=== PATIENT | male | born 1930 | race Caucasian/White ===

== ENCOUNTER 2017-06-15 09:35 | Emergency (ER) | payer BC ==
[2017-06-15] MEDS ORDERED: IPRATROPIUM/ALBUTEROL 3 ML DEYVIAL IH ONE (10:25)
--- NOTE | 2017-06-15 10:28 | EDPHY ---
H & P Stated Complaint: COUGH X 10 DAYS - Personal History Current Tetanus/Diphtheria Vaccine: Yes Tetanus Vaccine Date: < 10 YEARS - Medical/Surgical History Hx Asthma: No Hx Chronic Respiratory Disease: No Hx Diabetes: No Hx Cardiac Disease: Yes Hx Renal Disease: No Hx Cirrhosis: No Hx Alcoholism: No Hx HIV/AIDS: No Hx Splenectomy or Spleen Trauma: No Other PMH: [place] x 4, pacemaker, abd surgery 2007, abd hernia, hip surgery, stents in 2 major arteries x 14, prostate ca with surgery, htn, afib, ppm, dvt, - Social History Smoking Status: Never smoked Time Seen by Provider: 06/15/17 10:06 HPI/ROS: CHIEF COMPLAINT: Nonproductive cough times 10 days HISTORY OF PRESENT ILLNESS: 87-year-old male arrives by ambulance, no history of chronic lung pathology, no history of reactive airway disease, complaining of 10 days of nonproductive cough which he feels is exacerbated by recent while fire activity. No chest pain. No dyspnea. No dizziness. No back pain. No syncope or near syncope. No sore throat. No fever or chills. No flu-like symptoms. PRIMARY CARE PROVIDER:Dr. Kobi Blanca REVIEW OF SYSTEMS: A ten point review of systems was performed and is negative with the exception of the items mentioned in the HPI PAST MEDICAL & SURGICAL HISTORY: No pertinent medical or surgical history SOCIAL HISTORY:nonsmoker PHYSICAL EXAM (Prior to examination, patient consented to physical exam, hands were washed and my usual and customary physical exam procedures followed) 1) GENERAL: Well-developed, well-nourished, alert and oriented. Appears to be in no acute distress. Smiling. Speaking full sentences with no signs of respiratory distress 2) HEAD: Normocephalic, atraumatic 3) HEENT: Pupils equal, round, reactive to light bilaterally. Sclera anicteric. Nasopharynx, oropharynx, clear, no lesions. No tonsillar enlargement tonsillar exudate 4) NECK: Full range of motion, no meningeal signs. 5) LUNGS: mild bilateral end-expiratory wheeze. No accessory muscle use., no rhonchi, no retractions. 6) HEART: Regular rate and rhythm, no murmur, no heave, no gallop. 7) ABDOMEN: No guarding, no rebound, no focal tenderness, negative McBurney's, negative Jamison's, negative Rovsing's, negative peritoneal sign, 8) MUSCULOSKELETAL: Moving all extremities, no focal areas of tenderness, no obvious trauma. No peripheral edema or discoloratiom. negative Homans no palpable cord. 9) BACK: No CVA tenderness, no midline vertebral tenderness, no fluctuance, no step-off, no obvious trauma, no visual or palpable abnormality. 10) SKIN: No rash, no petechiae. 11) Psychiatric: Patient is oriented X 3, there is no agitation. DIFFERENTIAL DIAGNOSIS: in no particular include but limited to reactive airway disease, bronchitis, pneumonia, pulmonary edema, pulmonary embolus (Baljit Jacobson) Constitutional: Initial Vital Signs Temperature (C) 36.9 C 06/15/17 09:41 Heart Rate 78 06/15/17 09:41 Respiratory Rate 16 06/15/17 09:41 Blood Pressure 168/103 H 06/15/17 09:41 O2 Sat (%) 94 06/15/17 09:41 O2 Delivery Mode Room Air Allergies/Adverse Reactions: alprazolam [From Xanax] Allergy (Verified 12/05/15 18:57) nausea oxycodone Allergy (Verified 12/05/15 17:24) Home Medications: Medication Instructions Recorded Lidocaine 5% [Lidoderm 5% Patch 1 ea TD DAILY #12 patch 11/24/15 (*)] Acetaminophen [Tylenol ES 500 mg 1,000 mg PO Q8 PRN 11/27/15 (*)] Aspirin EC [Aspirin EC 81 mg (*)] 81 mg PO DAILY 11/27/15 Atorvastatin Calcium [Lipitor 40 40 mg PO DAILY@18 11/27/15 mg (*)] Calcitonin [Fortical (*)] 200 units NASAL DAILY 11/27/15 Carvedilol [Coreg (*)] 12.5 mg PO BIDMEAL 11/27/15 Cholecalciferol Vit D3 [Vitamin D3 1,000 units PO DAILY 11/27/15 (*)] Ferrous Gluconate 324 mg PO DAILY 11/27/15 Furosemide [Lasix 40 MG (*)] 40 mg PO DAILY 11/27/15 Herbals/Supplements -Info Only 1 ea PO DAILY 11/27/15 Levothyroxine [Synthroid 100 mcg 100 mcg PO DAILY06 11/27/15 (*)] Multivitamins [Multivitamin (*)] 1 each PO DAILY@12 11/27/15 Pantoprazole Sodium [Protonix 40mg 40 mg PO DAILY@06 11/27/15 (*)] Tears/Hypromellose [Natural 1 - 2 drops EACHEYE BID 11/27/15 Balance] Valsartan [Diovan (*)] 160 mg PO HS 11/27/15 Warfarin Sodium [Coumadin 2MG (*)] 2 mg PO SUTUWETHSA@16 11/27/15 Warfarin Sodium [Coumadin 5MG (*)] 5 mg PO MOFR@16 11/27/15 traMADol [Ultram 50 mg (*)] 50 mg PO Q6 PRN #30 tab 11/30/15 Enoxaparin [Lovenox] 120 mg SQ DAILY #7 ml 12/09/15 Methocarbamol [Robaxin 750 mg (*)] 750 mg PO TID PRN #30 tab 12/09/15 Ondansetron Odt [Zofran Odt 4 mg 4 mg PO Q4 PRN #20 tab 12/09/15 (*)] morphINE IR [morphINE IR 15 mg (*)] 15 mg PO Q6 PRN #30 tab 12/09/15 AZITHROMYCIN [Z-PACK] 500 mg PO DAILY #1 packet 06/15/17 Albuterol [Proventil Inhaler HFA 1 - 2 puffs IH Q4PRN PRN #1 mdi 06/15/17 (*)] predniSONE [Prednisone] 20 mg PO DAILY #9 tablet 06/15/17 Medical Decision Making - Diagnostics Imaging Results: Imaging Impressions Chest X-Ray 06/15/17 10:15 Impression: 1. Cardiomegaly and mild pulmonary venous hypertension. 2. Pacemaker without pneumothorax. 3. Atherosclerotic thoracic aorta. 4. No definite pneumonia. Images reviewed by myself (Baljit Jacobson) ED Course/Re-evaluation: 11:26 a.m.: Case discussed with secondary supine position Dr. Taye Lanier in the ER. Patient re-evaluated at this time. She did DuoNeb treatment. Notes improvement in his symptoms. I Kailyn auscultated his lungs and his lungs are clear bilaterally with resolution of his wheezing. I think that pneumonia, pulmonary embolus, [place], less than likely this patient absence of chest pain, dyspnea. Due to the ongoing nature of his symptoms have recommended starting the patient on antibiotic. He is on concurrent warfarin. I stressed the importance of close recheck of his INR on Saturday. Today is Saturday. I think the patient can be discharged have discussed this with him he feels comfortable with this plan. Recommend follow up with primary care provider Dr. Kobi Blanca on Saturday. I am starting the patient on albuterol, short dose of steroids and azithromycin. He feels comfortable being discharged. Usual and customary URI precautions instructions provided (Baljit Jacobson) I did not see this patient while he was in the emergency department. However his care was discussed with the PA while the patient was in the department. I agree with treatment plan and management (Taye Lanier) - Data Points Medications Given: Discontinued Medications Albuterol/Ipratropium (Duoneb) 3 ml IH EDNOW ONE Stop: 06/15/17 10:26 Last Admin: 06/15/17 10:27 Dose: 3 ml Prednisone (Prednisone) 60 mg PO EDNOW ONE Stop: 06/15/17 11:37 Last Admin: 06/15/17 11:40 Dose: 60 mg Departure - Departure Disposition: Home, Routine, Self-Care Clinical Impression: Acute bronchitis Qualifiers: Bronchitis organism: unspecified organism Qualified Code(s): J20.9 - Acute bronchitis, unspecified Condition: Good Instructions: Acute Bronchitis (ED) Additional Instructions: Return to the emergency department immediately for change in breathing habits, change in voice, change in swallowing habits, change in mental status, or any other symptoms that concern you. You to have your INR rechecked on Saturday Referrals: Uri Blanca MD [Primary Care Provider] - 06/17/17 Prescriptions: Albuterol [Proventil Inhaler HFA (*)] 1 - 2 puffs IH Q4PRN PRN #1 mdi PRN Reason: Cough, Moderate AZITHROMYCIN [Z-PACK] 500 mg PO DAILY #1 packet predniSONE [Prednisone] 20 mg PO DAILY #9 tablet
[2017-06-15 11:23] VITALS: RESP 18
[2017-06-15] MEDS ORDERED: predniSONE 20 MG TAB PO ONE (11:36)
[2017-06-15 12:37] VITALS: BP 167/106; PULSE 74; TEMP 98.1; O2SAT 96
--- NOTE | 2017-06-16 17:06 | ASDISCHSUM ---
Discharge Information Plan Status:Assisted Living Medically Cleared to Leave: Discharge Date: D/C Disposition: ADT D/C Disposition:Home, Routine, Self-Care Projected Discharge Date: Transportation at D/C: Discharge Delay Reason: Follow-Up Date: Discharge Slot: Final Diagnosis: Placement Information Patient Contact Information Contact Name:GANESH Relationship:Mel Address: Work Phone: City: [facility] Phone: State/[place] Code: Email: Financial Information Financial Class:HMO and PPO Plans Primary Plan Desc:[employer]AN Primary Plan Number:[id number] Secondary Plan Desc: Secondary Plan Number: Assessment Information Intervention Information Intervention Type:Transportation Date of Service:06/15/2017 11:56 AM Patient Type:Emergency Room Staff Member:Marcel Rodriguez Hours:0.25 Discipline:[place] Severity:1 (0-1 Hours) Comment:Mark from [facility] to marbella gamboa pt.
== END 2017-06-15 12:37 | disposition home or self-care (01) ==
LOC: EDUNIT#
DX: J20.9 Acute bronchitis, unspecified (principal); I10 Essential (primary) hypertension; Z79.01 Long term (current) use of anticoagulants; Z79.82 Long term (current) use of aspirin; Z85.46 Personal history of malignant neoplasm of prostate; Z95.0 Presence of cardiac pacemaker; Z95.5 Presence of coronary angioplasty implant and graft

== ENCOUNTER 2017-12-24 14:03 | Emergency (ER) | payer BC ==
--- NOTE | 2017-12-24 14:06 | EDPHY ---
H & P Time Seen by Provider: 12/24/17 14:05 HPI/ROS: CHIEF COMPLAINT: Cough, weakness HISTORY OF PRESENT ILLNESS: The patient presents to the ED for evaluation of cough and weakness for the past 3 days. The patient denies fever, vomiting or diarrhea. The patient is chronically anticoagulated for atrial fibrillation. The patient has had some nonspecific anterior chest pain which is nonexertional and nonpleuritic. The patient denies any documented fever. The patient does have a history of intermittent bronchitis. The patient denies any complaints of urinary frequency or dysuria. The patient does report mild global weakness. He denies additional acute complaints. REVIEW OF SYSTEMS: A comprehensive 10 point review of systems is otherwise negative aside from elements mentioned in the history of present illness. Source: Patient Exam Limitations: No limitations - Personal History Tetanus Vaccine Date: < 10 YEARS - Medical/Surgical History Hx Asthma: No Hx Chronic Respiratory Disease: No Hx Diabetes: No Hx Cardiac Disease: Yes Hx Renal Disease: No Hx Cirrhosis: No Hx Alcoholism: No Hx HIV/AIDS: No Hx Splenectomy or Spleen Trauma: No Other PMH: [place] x 4, pacemaker, abd surgery 2007, abd hernia, hip surgery, stents in 2 major arteries x 14, prostate ca with surgery, htn, afib, ppm, dvt, - Social History Smoking Status: Never smoked - Physical Exam Exam: General Appearance: Alert, no distress Eyes: Pupils equal and round no pallor or injection ENT, Mouth: Mucous membranes moist Respiratory: There are no retractions, lungs are clear to auscultation Cardiovascular: Regular rate and rhythm Gastrointestinal: Abdomen is soft and nontender, no masses, bowel sounds normal Neurological: A&O, normal motor function, normal sensory exam, normal cranial nerves Skin: Warm and dry, no rashes Musculoskeletal: Neck is supple nontender Extremities: symmetrical, full range of motion Constitutional: Initial Vital Signs Temperature (C) 36.6 C 12/24/17 14:08 Heart Rate 69 12/24/17 14:08 Respiratory Rate 18 12/24/17 14:08 Blood Pressure 126/91 H 12/24/17 14:08 O2 Sat (%) 94 12/24/17 14:08 O2 Delivery Mode Room Air Allergies/Adverse Reactions: alprazolam [From Xanax] Allergy (Verified 12/05/15 18:57) nausea oxycodone Allergy (Verified 12/05/15 17:24) Home Medications: Medication Instructions Recorded Lidocaine 5% [Lidoderm 5% Patch] 1 ea TD DAILY #12 patch 11/24/15 Acetaminophen [Tylenol ES 500 mg 1,000 mg PO Q8 PRN 11/27/15 (*)] Aspirin EC [Aspirin EC 81 mg (*)] 81 mg PO DAILY 11/27/15 Atorvastatin Calcium [Lipitor 40 40 mg PO DAILY@18 11/27/15 mg (*)] Calcitonin [Fortical (*)] 200 units NASAL DAILY 11/27/15 Carvedilol [Coreg (*)] 12.5 mg PO BIDMEAL 11/27/15 Cholecalciferol Vit D3 [Vitamin D3 1,000 units PO DAILY 11/27/15 (*)] Ferrous Gluconate 324 mg PO DAILY 11/27/15 Furosemide [Lasix 40 MG (*)] 40 mg PO DAILY 11/27/15 Herbals/Supplements -Info Only 1 ea PO DAILY 11/27/15 Levothyroxine [Synthroid 100 mcg 100 mcg PO DAILY06 11/27/15 (*)] Multivitamins [Multivitamin (*)] 1 each PO DAILY@12 11/27/15 Pantoprazole Sodium [Protonix 40mg 40 mg PO DAILY@06 11/27/15 (*)] Tears/Hypromellose [Natural 1 - 2 drops EACHEYE BID 11/27/15 Balance] Valsartan [Diovan (*)] 160 mg PO HS 11/27/15 Warfarin Sodium [Coumadin 2MG (*)] 2 mg PO SUTUWETHSA@16 11/27/15 Warfarin Sodium [Coumadin 5MG (*)] 5 mg PO MOFR@16 11/27/15 traMADol [Ultram 50 mg (*)] 50 mg PO Q6 PRN #30 tab 11/30/15 Enoxaparin [Lovenox] 120 mg SQ DAILY #7 ml 12/09/15 Methocarbamol [Robaxin 750 mg (*)] 750 mg PO TID PRN #30 tab 12/09/15 Ondansetron Odt [Zofran Odt 4 mg 4 mg PO Q4 PRN #20 tab 12/09/15 (*)] morphINE IR [morphINE IR 15 mg (*)] 15 mg PO Q6 PRN #30 tab 12/09/15 AZITHROMYCIN [Z-PACK] 500 mg PO DAILY #1 packet 06/15/17 Albuterol [Proventil Inhaler HFA 1 - 2 puffs IH Q4PRN PRN #1 mdi 06/15/17 (*)] predniSONE [Prednisone] 20 mg PO DAILY #9 tablet 06/15/17 Albuterol [Ventolin Hfa Inhaler] 2 puffs IH QID PRN #1 mdi 12/24/17 Oseltamivir Phosphate [Tamiflu] 75 mg PO BID #10 cap 12/24/17 Medical Decision Making - Diagnostics Imaging Results: Imaging Impressions Chest X-Ray 12/24/17 14:15 Impression: 1. Mild peribronchial cuffing in the perihilar region bilaterally similar to the prior study. Findings are nonspecific but can be seen with bronchitis, viral process, or reactive airways disease. 2. Stable mild to moderate cardiomegaly. ED Course/Re-evaluation: The patient presents the ED for evaluation of cough and weakness. The patient' s chest x-ray demonstrates no evidence of an obvious infiltrate. The patient was noted to be therapeutic on his Coumadin. His laboratory studies are reassuring. The patient was taken for a chest x-ray which demonstrates no evidence of a focal infiltrate. The patient was noted to be influenza B positive. The patient is not hypoxic, tachycardic or hypotensive. I re-evaluated the patient at 3:40 p.m. and he will be prescribed Tamiflu and albuterol. He is comfortable being discharged home and returning to the ED for any worsening symptoms or other concerns. The patient will follow up with his primary care provider for any ongoing symptoms or other concerns. He is given customary aftercare instructions and return precautions. Differential Diagnosis: Differential diagnosis considered includes asthma, influenza, bronchitis, pneumonia, dehydration, metabolic abnormality - Data Points Laboratory Results: Laboratory Results 12/24/17 14:20 12/24/17 14:20 12/24/17 12/24/17 12/24/17 14:20 14: 14:20 WBC 5.47 10^3/uL 10^3/uL (3.80-9.50) RBC 3.64 10^6/uL L 10^6/uL (4.40-6.38) Hgb 12.2 g/dL L g/dL (13.7-17.5) Hct 35.7 % L % (40.0-51.0) MCV 98.1 fL fL (81.5-99.8) MCH 33.5 pg pg (27.9-34.1) MCHC 34.2 g/dL g/dL (32.4-36.7) RDW 14.3 % % (11.5-15.2) Plt Count 113 10^3/uL L 10^3/uL (150-400) MPV 10.4 fL fL (8.7-11.7) Neut % (Auto) 62.3 % % (39.3-74.2) Lymph % (Auto) 17.7 % % (15.0-45.0) [place] % (Auto) 13.9 % H % (4.5-13.0) Eos % (Auto) 4.8 % % (0.6-7.6) Baso % (Auto) 0.9 % % (0.3-1.7) Nucleat RBC Rel Count 0.0 % % (0.0-0.2) Absolute Neuts (auto) 3.41 10^3/uL 10^3/uL (1.70-6.50) Absolute Lymphs (auto) 0.97 10^3/uL L 10^3/uL (1.00-3.00) Absolute Monos (auto) 0.76 10^3/uL 10^3/uL (0.30-0.80) Absolute Eos (auto) 0.26 10^3/uL 10^3/uL (0.03-0.40) Absolute Basos (auto) 0.05 10^3/uL 10^3/uL (0.02-0.10) Absolute Nucleated RBC 0.00 10^3/uL 10^3/uL (0-0.01) Immature Gran % 0.4 % % (0.0-1.1) Immature Gran # 0.02 10^3/uL 10^3/uL (0.00-0.10) PT 20.2 SEC H SEC (12.0-15.0) INR 1.71 H (0.83-1.16) Sodium Potassium Chloride Carbon Dioxide Anion Gap BUN Creatinine Estimated GFR Glucose Calcium Nasal Influenza A PCR NEGATIVE FOR FLU A (NEGATIVE) Nasal Influenza B PCR FLU B DETECTED H (NEGATIVE) 12/24/17 14:20 WBC RBC Hgb Hct MCV MCH MCHC RDW Plt Count MPV Neut % (Auto) Lymph % (Auto) [place] % (Auto) Eos % (Auto) Baso % (Auto) Nucleat RBC Rel Count Absolute Neuts (auto) Absolute Lymphs (auto) Absolute Monos (auto) Absolute Eos (auto) Absolute Basos (auto) Absolute Nucleated RBC Immature Gran % Immature Gran # PT INR Sodium 143 mEq/L mEq/L (135-145) Potassium 4.0 mEq/L mEq/L (3.5-5.2) Chloride 107 mEq/L mEq/L (97-110) Carbon Dioxide 24 mEq/l mEq/l (22-31) Anion Gap 12 mEq/L mEq/L (8-16) BUN 29 mg/dL H mg/dL (7-23) Creatinine 0.7 mg/dL mg/dL (0.7-1.3) Estimated GFR > 60 Glucose 95 mg/dL mg/dL (70-100) Calcium 8.0 mg/dL L mg/dL (8.5-10.4) Nasal Influenza A PCR Nasal Influenza B PCR Departure - Departure Disposition: Home, Routine, Self-Care Clinical Impression: Influenza Condition: Good Instructions: Influenza (ED) Additional Instructions: 1. Please take Tamiflu as directed for influenza infection. 2. Please use albuterol inhaler up to every 2-4 hours as needed for cough and shortness of breath. 3. Please return to the ED for any worsening symptoms, vomiting or other concerns. 4. Please follow-up with your primary care provider as needed. Referrals: Uri Blanca MD [Medical Doctor] - As per Instructions
[2017-12-24 14:10] VITALS: RESP 18
--- NOTE | 2017-12-24 14:33 | CPEKG ---
Heart Rate: 75 RR Interval: 800 QRSD Interval: 142 QT Interval: 452 QTC Interval: 505 QRS [place]: -33 T Wave [place]: -34 EKG Severity - ABNORMAL ECG - EKG Impression: AFIB/FLUT AND V-PACED COMPLEXES EKG Impression: IVCD, CONSIDER ATYPICAL RBBB Electronically Signed By: Kendell Dill 24-Dec-2017 16:16:54
[2017-12-24 14:35] LABS: PLATELET COUNT 113 10^3/uL (150-400)
[2017-12-24 14:46] LABS: INR 1.71 (0.83-1.16); PROTIME(PATIENT) 20.2 SEC (12.0-15.0)
[2017-12-24 15:55] VITALS: BP 121/79; PULSE 65; TEMP 98.1; O2SAT 95
== END 2017-12-24 15:55 | disposition home or self-care (01) ==
LOC: EDUNIT#
DX: J10.1 Influenza due to other identified influenza virus with other respiratory manifestations (principal); I25.2 Old myocardial infarction; Z85.46 Personal history of malignant neoplasm of prostate; Z79.82 Long term (current) use of aspirin; Z79.01 Long term (current) use of anticoagulants; Z95.0 Presence of cardiac pacemaker

== ENCOUNTER 2018-02-13 06:23 | Observation (INO) | payer BC ==
--- NOTE | 2018-02-13 06:36 | CPEKG ---
Heart Rate: 79 RR Interval: 759 QRSD Interval: 134 QT Interval: 460 QTC Interval: 528 QRS [place]: -32 T Wave [place]: -39 EKG Severity - ABNORMAL ECG - EKG Impression: ATRIAL FIBRILLATION EKG Impression: IVCD, CONSIDER ATYPICAL RBBB EKG Impression: CONSIDER ANTERIOR INFARCT Electronically Signed By: Frank Tipton 13-Feb-2018 07:23:44
--- NOTE | 2018-02-13 06:39 | EDPHY ---
H & P Time Seen by Provider: 02/13/18 06:30 HPI/ROS: Chief Complaint: Sweating, nausea HPI: 87-year-old male with a history of coronary artery disease status post stenting times 12. Patient woke this morning about 2 o'clock this morning feeling very sweaty and nauseated. He says that these are the exact same symptoms he has had with his prior silent myocardial infarctions. He has had multiple MIs but has never had any chest pain associated with him. He did have some mild shortness of breath. Symptoms lasted up until about an hour ago. He is currently symptom free. He did shoe 4 baby aspirin. No recent illness. No fevers or chills. He does have some lumbar compression fractures which caused him some discomfort but these are not acute. He did not have any vomiting. He has a history of atrial fibrillation and has had ischemic bowel. He is currently on Coumadin, INR last checked about 3 weeks ago. ROS: 10 point Review of Systems is negative except as noted in the HPI. Social History: No smoking, no alcohol, no recreational drug use Family History: non-contributory Physical Exam: Gen: Awake, Alert, No Distress HEENT: Nose: no rhinorrhea Eyes: PERRLA, EOMI Mouth: Moist mucosa Neck: Supple, no JVD Chest: nontender, lungs clear to auscultation Heart: S1, S2 normal, no murmur Abd: Soft, a large ventral her hernia, nontender, no guarding Back: no CVA tenderness, no midline tenderness Ext: no edema, non-tender Skin: no rash Neuro: CN II-XII intact, Sensation grossly intact, Strength 5/5 in bilateral upper and lower extremities - Personal History Tetanus Vaccine Date: < 10 YEARS - Medical/Surgical History Hx Asthma: No Hx Chronic Respiratory Disease: No Hx Diabetes: No Hx Cardiac Disease: Yes Hx Renal Disease: No Hx Cirrhosis: No Hx Alcoholism: No Hx HIV/AIDS: No Hx Splenectomy or Spleen Trauma: No Other PMH: [place] x 4, pacemaker, abd surgery 2007, abd hernia, hip surgery, stents in 2 major arteries x 14, prostate ca with surgery, htn, afib, ppm, dvt, - Social History Smoking Status: Never smoked Constitutional: Initial Vital Signs Temperature (C) 36.5 C 02/13/18 06:30 Heart Rate 69 05/10/18 06:30 Respiratory Rate 17 02/13/18 06:30 Blood Pressure 143/88 H 02/13/18 06:30 O2 Sat (%) 97 02/13/18 06:30 O2 Delivery Mode Room Air Allergies/Adverse Reactions: alprazolam [From Xanax] Allergy (Verified 02/13/18 06:39) nausea oxycodone Allergy (Verified 02/13/18 06:39) Home Medications: Medication Instructions Recorded Aspirin EC [Aspirin EC 81 mg (*)] 81 mg PO DAILY 11/27/15 Atorvastatin Calcium [Lipitor 40 40 mg PO DAILY@18 11/27/15 mg (*)] Carvedilol [Coreg (*)] 12.5 mg PO BIDMEAL 11/27/15 Cholecalciferol Vit D3 [Vitamin D3 1,000 units PO DAILY 11/27/15 (*)] Ferrous Gluconate 324 mg PO DAILY 11/27/15 Furosemide [Lasix 40 MG (*)] 40 mg PO DAILY 11/27/15 Herbals/Supplements -Info Only 1 ea PO DAILY 11/27/15 Levothyroxine [Synthroid 100 mcg 100 mcg PO DAILY06 11/27/15 (*)] Multivitamins [Multivitamin (*)] 1 each PO DAILY@12 11/27/15 Pantoprazole Sodium [Protonix 40mg 40 mg PO DAILY@11/27/15 (*)] Valsartan [Diovan (*)] 160 mg PO HS 11/27/15 Warfarin Sodium [Coumadin 2MG (*)] 2 mg PO SUTUWETHSA@16 11/27/15 Warfarin Sodium [Coumadin 5MG (*)] 5 mg PO MOFR@16 11/27/15 Medical Decision Making - Diagnostics EKG Interpretation: ECG time 6:33 a.m., atrial fibrillation with a rate of 79, evidence of an old anterior infarct which is unchanged. There is interventricular conduction delay and atypical right bundle branch block. No significant changes from prior ECG of 12/24/2017. Imaging Results: There are no acute changes on his chest x-ray per my interpretation. Imaging: I viewed and interpreted images myself ED Course/Re-evaluation: 87-year-old male with a history coronary artery disease presenting with symptoms typical for his prior silent MIs. No acute changes on his ECG. His troponin is not significantly elevated. He did take aspirin at home. He is symptom-free at this time. Given his history will admit to the hospitalist for further monitoring and cardiac rule out. - Data Points Laboratory Results: Laboratory Results 02/13/18 06:25 02/13/18 06:25 02/13/18 02/13/18 02/13/18 06:25 06:25 06:25 WBC 5.53 10^3/uL 10^3/uL (3.80-9.50) RBC 3.68 10^6/uL L 10^6/uL (4.40-6.38) Hgb 12.4 g/dL L g/dL (13.7-17.5) Hct 35.5 % L % (40.0-51.0) MCV 96.5 fL fL (81.5-99.8) MCH 33.7 pg pg (27.9-34.1) MCHC 34.9 g/dL g/dL (32.4-36.7) RDW 14.4 % % (11.5-15.2) Plt Count 139 10^3/uL L 10^3/uL (150-400) MPV 10.5 fL fL (8.7-11.7) Neut % (Auto) 60.7 % % (39.3-74.2) Lymph % (Auto) 22.2 % % (15.0-45.0) [place] % (Auto) 8.3 % % (4.5-13.0) Eos % (Auto) 7.1 % % (0.6-7.6) Baso % (Auto) 1.3 % % (0.3-1.7) Nucleat RBC Rel Count 0.0 % % (0.0-0.2) Absolute Neuts (auto) 3.36 10^3/uL 10^3/uL (1.70-6.50) Absolute Lymphs (auto) 1.23 10^3/uL 10^3/uL (1.00-3.00) Absolute Monos (auto) 0.46 10^3/uL 10^3/uL (0.30-0.80) Absolute Eos (auto) 0.39 10^3/uL 10^3/uL (0.03-0.40) Absolute Basos (auto) 0.07 10^3/uL 10^3/uL (0.02-0.10) Absolute Nucleated RBC 0.00 10^3/uL 10^3/uL (0-0.01) Immature Gran % 0.4 % % (0.0-1.1) Immature Gran # 0.02 10^3/uL 10^3/uL (0.00-0.10) PT 25.8 SEC H SEC (12.0-15.0) INR 2.36 H (0.83-1.16) APTT 36.1 SEC SEC (23.0-38.0) Sodium 142 mEq/L mEq/L (135-145) Potassium 4.2 mEq/L mEq/L (3.5-5.2) Chloride 105 mEq/L mEq/L (97-110) Carbon Dioxide 26 mEq/l mEq/l (22-31) Anion Gap 11 mEq/L mEq/L (8-16) BUN 24 mg/dL H mg/dL (7-23) Creatinine 0.8 mg/dL mg/dL (0.7-1.3) Estimated GFR > 60 Glucose 107 mg/dL H mg/dL (70-100) Calcium 8.8 mg/dL mg/dL (8.5-10.4) Troponin I 0.015 ng/mL ng/mL (0.000-0.034) Departure - Departure Disposition: [facility] In[facility] Acute Clinical Impression: Diaphoresis, Nausea Condition: Fair Referrals: Patient,NotPresent [Unknown] - As per Instructions
[2018-02-13 06:55] LABS: INR 2.36 (0.83-1.16); PROTIME(PATIENT) 25.8 SEC (12.0-15.0)
[2018-02-13 07:02] LABS: PLATELET COUNT 139 10^3/uL (150-400)
[2018-02-13] MEDS ORDERED: ONDANSETRON DISINTEGRATING 4 MG TAB PO PRN (07:32)
[2018-02-13] MEDS ORDERED: ONDANSETRON 4 MG/2 ML VIAL IVP PRN (07:32)
[2018-02-13] MEDS ORDERED: ACETAMINOPHEN 325 MG TAB PO PRN (07:32)
[2018-02-13] MEDS ORDERED: NS 1,000 ML IV SCH (08:45)
[2018-02-13] MEDS: PANTOPRAZOLE SODIUM 40 MG TAB PO SCH (09:01)
--- NOTE | 2018-02-13 09:44 | PDGENHP ---
History and Physical - Chief Complaint Nause and diaphoresis - History of Present Illness This is a 87 yo male with hx of CAD and multiple WA's who previously has had WA' s with silent (no cp) sxs to include diaphoresis and nausea. Today he had these symptoms and was worried about an WA and presented to the E.D. IN the E.D. a troponin is unremarkable and EKG does not show new ischemia. He denies CP. He is no longer diaphoretic and has no nausea. He is being admitted for cp r/o given his presentation and history. Denies fevers, cp, sob, vomiting, diarrhea, malaise, palpitations, leg swelling. PMHX/SHX: WA x 4, pacemaker, abd surgery 2007, abd hernia, hip surgery, stents in 2 major arteries x 14, prostate ca with surgery, htn, afib, ppm, dvt, Social History: No smoking, no alcohol, no recreational drug use Family History: non-contributory History Information - Allergies/Home Medication List Allergies/Adverse Reactions: alprazolam [From Xanax] Allergy (Verified 02/13/18 06:39) nausea oxycodone Allergy (Verified 02/13/18 06:39) Home Medications: Aspirin EC [Aspirin EC 81 mg (*)] 81 mg PO DAILY 11/27/15 [Last Taken 02/12/18] Atorvastatin Calcium [Lipitor 40 mg (*)] 40 mg PO DAILY@18 11/27/15 [Last Taken 02/12/18] Carvedilol [Coreg (*)] 12.5 mg PO BIDMEAL 11/27/15 [Last Taken 02/12/18 18:00] Cholecalciferol Vit D3 [Vitamin D3 (*)] 1,000 units PO DAILY 11/27/15 [Last Taken 02/12/18] Ferrous Gluconate 324 mg PO DAILY 11/27/15 [Last Taken 02/12/18] Furosemide [Lasix 40 MG (*)] 40 mg PO DAILY@1330 11/27/15 [Last Taken 11:30] Herbals/Supplements -Info Only 1 ea PO DAILY 11/27/15 [Last Taken 12/04/15] Levothyroxine [Synthroid 100 mcg (*)] 100 mcg PO DAILY@07 11/27/15 [Last Taken 02/12/18] Multivitamins [Multivitamin (*)] 1 each PO DAILY@1330 11/27/15 [Last Taken 02/12] Pantoprazole Sodium [Protonix 40mg (*)] 40 mg PO DAILY@07 11/27/15 [Last Taken 02/12/18] Valsartan [Diovan (*)] 160 mg PO HS 11/27/15 [Last Taken 02/12/18] C/E/Zn/Cu/OM3/DHA/EPA/LUT/ZEAX [Preservision Areds 2 Softgel] 1 each PO BIDMEAL 02/13/18 [Last Taken 02/12/18 18:00] Warfarin Sodium [Coumadin 3MG (*)] 3 mg PO DAILY@1330 02/13/18 [Last Taken 02/12] I have personally reviewed and updated: medical history, social history - Social History Smoking Status: Never smoked Review of Systems Review of Systems: ROS: 10pt was reviewed & negative except for what was stated in HPI & below Physical Exam Physical Exam: Temp Pulse Resp BP Pulse Ox 36.7 C 63 18 160/99 H 96 02/13/18 07:16 02/13/18 07:16 02/13/18 07:16 02/13/18 07:16 02/13/18 07:16 Constitutional: no apparent distress Eyes: PERRL Ears, Nose, Mouth, Throat: moist mucous membranes, hearing normal, ears appear normal Cardiovascular: irregularly irregular, No edema Respiratory: no respiratory distress, no rales or rhonchi, clear to auscultation Gastrointestinal: normoactive bowel sounds, soft, non-tender abdomen Skin: warm Musculoskeletal: No generalized weakness Neurologic: AAOx3 Psychiatric: interacting appropriately, not anxious, not encephalopathic Lymph, Heme, Immunologic: No petechiae Lab Data & Imaging Review 02/13/18 06:25 02/13/18 06:25 WBC 5.53 10^3/uL (3.80-9.50) 02/13/18 06:25 RBC 3.68 10^6/uL (4.40-6.38) L 02/13/18 06:25 Hgb 12.4 g/dL (13.7-17.5) L 02/13/18 06:25 Hct 35.5 % (40.0-51.0) L 02/13/18 06:25 MCV 96.5 fL (81.5-99.8) 02/13/18 06:25 MCH 33.7 pg (27.9-34.1) 02/13/18 06:25 MCHC 34.9 g/dL (32.4-36.7) 02/13/18 06:25 RDW 14.4 % (11.5-15.2) 02/13/18 06:25 Plt Count 139 10^3/uL (150-400) L 02/13/18 06:25 MPV 10.5 fL (8.7-11.7) 02/13/18 06:25 Neut % (Auto) 60.7 % (39.3-74.2) 02/13/18 06:25 Lymph % (Auto) 22.2 % (15.0-45.0) 02/13/18 06:25 Emmet % (Auto) 8.3 % (4.5-13.0) 02/13/18 06:25 Eos % (Auto) 7.1 % (0.6-7.6) 02/13/18 06:25 Baso % (Auto) 1.3 % (0.3-1.7) 02/13/18 06:25 Nucleat RBC Rel Count 0.0 % (0.0-0.2) 02/13/18 06:25 Absolute Neuts (auto) 3.36 10^3/uL (1.70-6.50) 02/13/18 06:25 Absolute Lymphs (auto) 1.23 10^3/uL (1.00-3.00) 02/13/18 06:25 Absolute Monos (auto) 0.46 10^3/uL (0.30-0.80) 02/13/18 06:25 Absolute Eos (auto) 0.39 10^3/uL (0.03-0.40) 02/13/18 06:25 Absolute Basos (auto) 0.07 10^3/uL (0.02-0.10) 02/13/18 06:25 Absolute Nucleated RBC 0.00 10^3/uL (0-0.01) 02/13/18 06:25 Immature Gran % 0.4 % (0.0-1.1) 02/13/18 06:25 Immature Gran # 0.02 10^3/uL (0.00-0.10) 02/13/18 06:25 PT 25.8 SEC (12.0-15.0) H 02/13/18 06:25 INR 2.36 (0.83-1.16) H 02/13/18 06:25 APTT 36.1 SEC (23.0-38.0) 02/13/18 06:25 Sodium 142 mEq/L (135-145) 02/13/18 06:25 Potassium 4.2 mEq/L (3.5-5.2) 02/13/18 06:25 Chloride 105 mEq/L (97-110) 02/13/18 06:25 Carbon Dioxide 26 mEq/l (22-31) 02/13/18 06:25 Anion Gap 11 mEq/L (8-16) 02/13/18 06:25 BUN 24 mg/dL (7-23) H 02/13/18 06:25 Creatinine 0.8 mg/dL (0.7-1.3) 02/13/18 06:25 Estimated GFR > 60 02/13/18 06:25 Glucose 107 mg/dL (70-100) H 02/13/18 06:25 Calcium 8.8 mg/dL (8.5-10.4) 02/13/18 06:25 Troponin I 0.015 ng/mL (0.000-0.034) 02/13/18 06:25 Assessment & Plan Assessment: #concerns for ACS given his sx's of diaphoresis and nausea #Hx of CAD and WA's #Afib #s/p pacemaker #HTN #Chronic AC #Thrombocytopenia Plan: -serial trop -check TTE. Previous TTE in 2014 showed LVEF of 45%, mildly reduced LV systolic function, and mild global hypokinesis -Dr. Ledbetter to consult per pt's request -Lovenox for DVT proph -Received Aspirin prior to arrival to the E.D. -Antiemetics -trial of PPI -home meds as appropriate -DNR, confirmed at bedside today
[2018-02-13] MEDS ORDERED: MULTIVITAMINS 1 EACH TAB PO ONE (13:36)
[2018-02-13] MEDS ORDERED: FUROSEMIDE 40 MG TAB ONE (13:36)
[2018-02-13] MEDS: WARFARIN SODIUM 3 MG TAB PO SCH (13:37)
[2018-02-13] MEDS: MULTIVITAMINS 1 EACH TAB PO SCH ×2 (13:37→15:23)
[2018-02-13] MEDS: FUROSEMIDE 40 MG TAB PO SCH (13:37)
--- NOTE | 2018-02-13 14:49 | ECHO ---
[email or web address] [address] [address] Main: [phone] Fax: Transthoracic Echocardiogram Name: SERA YUSUF MR#: [id number] Study Date: 02/13/2018 Study Time: 01:52 PM Date of : 1930 Age: 87 year(s) Height: 170.2 cm (67 in.) Weight: 74.84 kg (165 lb.) BSA: 1.86 m2 Gender: Male Examination: Echo Indication: Chest Pain Image Quality: Adequate Contrast: Requested by: Jose Martin Kruse BP: 180 mmHg/106 mmHg Heart Rate: Rhythm: Atrial fibrillation Indication: Chest Pain Procedure Staff Group Work Program Director: Madeline Holland [facility] Reading Physician: Joaquim Villagran MD Requesting Provider: Conclusions: Normal size left ventricle. Mild concentric LV hypertrophy. Mildly reduced systolic LV function. EF is 49 %. There is paradoxic septal motion suggestive of bundle branch block, paced cardiac rhythm, or prior cardiac surgery. Basal inferior and inferolateral ivory are hypokinetic. Moderately dilated right ventricle. Mildly reduced RV function. The left atrium is severely dilated. The right atrium is severely dilated. There is mild thickening of the mitral valve leaflets. Moderate to severe mitral regurgitation. The aortic valve is tri-leaflet and functions normally. Severe tricuspid regurgitation is present. Right ventricular systolic pressure measures 52mmHg. When compared to the 01/12/15 study. The degree of TR has increased from moderate to severe. The degree of MR has increased from moderate to moderate/severe. Measurements: Chambers Valvular Assessment AV/MV Valvular Assessment TV/PV Normal Normal Normal Name Value Range Name Value Range Name Value Range Ao Cami (MM): 3.8 cm (2.2 cm-3.7 AV Vmax: 0.95 m/s (1 m/s-1.7 TR Vmax: 3.24 mm/s ( - ) cm) m/s) TR PGmax: 42 mmHg ( - ) IVSd (2D): 1.1 cm (0.6 cm-1.1 AV maxP mmHg ( - ) syst. PAP: 52 mmHg ( - ) cm) LVOT Vmax: 0.76 m/s (0.7 m/s-1.1 PV Vmax: 0.92 m/s (0.6 m/s-0.9 LVDd (2D): 5.0 cm (4.2 cm-5.9 m/s) m/s) cm) LALO (Vmax): 2.3 cm2 ( - ) PV PGmax: 3 mmHg ( - ) MV A Vmax: 0.26 m/s ( - ) Patient: SERA YUSUF Study Date: 02/13/2018 Page 1 of 3 01:52 PM LVDs (2D): 4.6 cm (2.1 cm-4 MV maxP mmHg ( - ) cm) MV meanP mmHg ( - ) LVPWd (2D): 1.0 cm (0.6 cm-1 MVA (Vmax): 3.0 m/s ( - ) cm) LVOTd 1.9 cm 1.9 cm mm LVEF (BP): 49 % (>=55 %) RVDd(2D): 4.6 cm (1.9 cm-3.8 cmmm) Continued Measurements: Chambers Valvular Assessment AV/MV Valvular Assessment TV/PV Name Value Name Value Name Value LADs: 4.4 cm MV Annulus: 3.1 cm CVP (est.): 10 mmHg LADs Lon.8 cm MV DecTime: 197 m/s LA Area: 30.7 cm2 MV E/E' Lateral: 10.60 LA Volume: 99 ml MV VTI: 13.50 cm LA Volume Index: 53.2 ml/m2 MR Vena Contracta: 0.5 cm TAPSE: 1.5 cm MR ERO: 0.250 cm2 RA Area: 29.0 cm2 MR PISA radius: 7 mm MR Reg. Volume: 53 ml MR Reg. Fraction: 52 % Additional Vessels Name Value Ao Ascendin.1 cm Findings: Left Ventricle: Normal size left ventricle. Mild concentric LV hypertrophy. Mildly reduced systolic LV function. EF is 49 %. There is paradoxic septal motion suggestive of bundle branch block, paced cardiac rhythm, or prior cardiac surgery. Unable to assess diastolic dysfunction. Basal inferior and inferolateral ivory are hypokinetic. Right Ventricle: Moderately dilated right ventricle. Mildly reduced RV function. There is a pacemaker lead noted in the right ventricle. Left Atrium: The left atrium is severely dilated. Right Atrium: The right atrium is severely dilated. There is a pacemaker lead noted in the right atrium. Mitral Valve: There is mild thickening of the mitral valve leaflets. Mild mitral annular calcification. Moderate to severe mitral regurgitation.No mitral stenosis is present. The pulmonary vein flow demonstrates systolic flow inversion. Aortic Valve: The aortic valve is tri-leaflet and functions normally. Aortic sclerosis is present. There is no aortic valve regurgitation. No aortic valve stenosis is present. Tricuspid Valve: The tricuspid valve appears normal. Severe tricuspid regurgitation is present. Right ventricular systolic pressure measures 52mmHg. The pulmonary artery pressure is moderately increased. Pulmonic Valve: The pulmonic valve is normal in appearance and function. Trivial pulmonic valve regurgitation. Aorta: Normal size aortic root measuring 3.8 cm. Normal size ascending aorta measuring 3.1 cm. IVC: The IVC is dilated. Pericardium: No pericardial effusion. Patient: SERA YUSUF Study Date: 02/13/2018 Page 2 of 3 01:52 PM (No Signature Object) Patient: SERA YUSUF Study Date: 02/13/2018 Page 3 of 3 01:52 PM [id number]
--- NOTE | 2018-02-13 17:57 | PDCARPN ---
Cardiology Progress Note Assessment/Plan: Assessment/Plan: 87-year-old male with sick sinus syndrome and pacemaker; permanent atrial fibrillation; ischemic cardiomyopathy with an ejection fraction of 45%. He has valvular heart disease with moderate mitral regurgitation and severe tricuspid regurgitation. He has multivessel coronary disease status post PCI, most recent PCI was in 2006. In 2010 he had a coronary angiogram showing occluded RCA and left circumflex with collaterals from the LAD to the circumflex. He is now admitted with symptoms concerning for angina. 2 troponins have been negative. He feels back to baseline. He is quite hypertensive. 1. Coronary disease with possible anginal equivalent: Negative troponins. Would check 1 more. His EKG does show some anterior T-wave inversions which are new but some nonspecific. No new wall motion abnormalities on echocardiogram. I do think that it is likely that his suboptimally controlled hypertension was contributing to his symptom complex. Will increase Coreg and possibly Diovan. Continue statin and aspirin. Would not perform myocardial perfusion study given his known coronary anatomy which is not amenable to further intervention. 2. Cardiomyopathy: He does not appear to be in heart failure. Continue outpatient Lasix. 3. Valvular heart disease: His tricuspid regurgitation is worse. He has no clinical evidence of right heart failure. Continue medical management. 4. Hypertension: Suboptimally controlled. Up titrate beta blockers and possibly angiotensin receptor valentin. 5. Atrial fibrillation with pacemaker: He is well rate controlled. He is on warfarin for CHADS2 Vasc score of 5. His INR is therapeutic. No active bleeding. 6. Hypothyroidism: Check TSH if not already done. 02/13/18 17:54 Subjective: He feels back to baseline now. 3 nights ago and then again last night he woke up with sweats, mild nausea, and dyspnea. This was reminiscent of his previous anginal symptoms and therefore he was concern. Symptoms lasted for several hours. He has not had problems with palpitations, lower extremity swelling. No bleeding problems on Coumadin. He did have the flu about 6 weeks ago but feels that he has recovered from that and has no ongoing cough or viral type symptoms. No sick contacts. Objective: Vital Signs (8 Hrs) Temp Pulse Resp BP Pulse Ox 02/13/18 14:31 36.3 C 84 16 180/91 H 94 02/13/18 13:14 63 16 180/106 H 96 02/13/18 10:00 36.6 C 72 18 177/88 H 94 Intake/Output (24 Hrs) 02/12/18 02/13/18 02/14/18 05:59 05:59 05:59 Other: Weight 74.843 kg No acute distress. JVP ear. Irregular regular rhythm with soft holosystolic murmur at the left lower sternal border. No S3. Lungs clear bilaterally no lower extremity edema. Chest x-ray reviewed: No acute cardiopulmonary process Result Diagrams: 02/13/18 06:25 02/13/18 06:25 Cardiac Labs: Cardiac Lab Results (72 Hrs) 02/13/18 12:18 Troponin I < 0.012 EKG: Right bundle branch block. Atrial fibrillation. Anterior T-wave inversions. Inferior OH. Echocardiogram: Reviewed: Mild LV systolic dysfunction ejection fraction 45%. Global hypokinesis and septal wall motion consistent with pacing. Inferior hypokinesis. Moderate mitral regurgitation and severe tricuspid regurgitation with moderate pulmonary hypertension. ICD10 Worksheet Patient Problems: Problems Problem Status Onset Atrial fibrillation Chronic Compression fracture of thoracic vertebra Acute Inadequate pain control Acute Diaphoresis Acute Nausea Acute
[2018-02-13] MEDS ORDERED: ATORVASTATIN CALCIUM 40 MG TAB PO SCH (18:00)
[2018-02-13] MEDS ORDERED: CARVEDILOL 6.25 MG TAB PO SCH (18:00)
[2018-02-13] MEDS: PRESERVISION AREDS2 FORMULA EYE VIT 1 EACH PO SCH (18:17)
[2018-02-13] MEDS: CARVEDILOL 25 MG TAB PO SCH (18:17)
[2018-02-13] MEDS ORDERED: VALSARTAN 160 MG TAB PO SCH (21:00)
[2018-02-14 04:22] LABS: INR 2.31 (0.83-1.16); PROTIME(PATIENT) 25.4 SEC (12.0-15.0)
[2018-02-14 04:24] LABS: PLATELET COUNT 121 10^3/uL (150-400)
[2018-02-14] MEDS ORDERED: LEVOTHYROXINE 100 MCG TAB PO SCH (07:00)
[2018-02-14] MEDS: PRESERVISION AREDS2 FORMULA EYE VIT 1 EACH PO SCH (07:57)
[2018-02-14] MEDS: PANTOPRAZOLE SODIUM 40 MG TAB PO SCH (07:57)
[2018-02-14] MEDS: CARVEDILOL 25 MG TAB PO SCH (07:57)
[2018-02-14] MEDS: FUROSEMIDE 40 MG TAB PO SCH ×2 (07:58→14:34)
[2018-02-14] MEDS ORDERED: FERROUS GLUCONATE 324 MG PO SCH (09:00)
[2018-02-14] MEDS ORDERED: ASPIRIN EC 81 MG TAB PO SCH (09:00)
[2018-02-14] MEDS ORDERED: FERROUS SULFATE 325 MG TAB PO SCH (09:00)
[2018-02-14] MEDS ORDERED: Herbals/Supplements -Info Only PO SCH (09:00)
[2018-02-14] MEDS ORDERED: CHOLECALCIFEROL VIT D3 1,000 UNITS TAB PO SCH (09:00)
--- NOTE | 2018-02-14 10:15 | ASMTCASEMG ---
Living Arrangements What is your living Answers: Alone arrangement? Who do you live with? Type Of Residence What kind of residence do Answers: Apartment you live in? Discharge Plan Comments Coordination Status Comments Notes: CM spoke w/ WENDY Garcia regarding d/c POC. Pt is a 87 y/o man admitted for diaphoresis and nausea. Pt may have an ablation. Pt will most likely d/c independent when medically stable. No therapies ordered at this time. CM available for changes. Plan: Independent Date Signed: 02/14/2018 10:14 AM Electronically Signed By:VONNIE Arguello
--- NOTE | 2018-02-14 11:46 | PDCARPN ---
Cardiology Progress Note Assessment/Plan: Assessment/Plan: 87-year-old male with sick sinus syndrome and pacemaker; permanent atrial fibrillation; ischemic cardiomyopathy with an ejection fraction of 45%. He has valvular heart disease with moderate mitral regurgitation and severe tricuspid regurgitation. He has multivessel coronary disease status post PCI, most recent PCI was in 2006. In 2010 he had a coronary angiogram showing occluded RCA and left circumflex with collaterals from the LAD to the circumflex. He is now admitted with symptoms concerning for angina. 3 troponins have been negative. He feels back to baseline. He was hypertensive upon admission. 1. Coronary disease with possible anginal equivalent: Negative troponins. His EKG does show some anterior T-wave inversions which are new but nonspecific. No new wall motion abnormalities on echocardiogram. I do think that it is likely that his suboptimally controlled hypertension was contributing to his symptom complex. increased Coreg. Continue statin and aspirin. Would not perform myocardial perfusion study given his known coronary anatomy which is not amenable to further intervention. We will discharge with p.r.n. Sublingual nitroglycerin. 2. Cardiomyopathy: He does not appear to be in heart failure. Continue outpatient Lasix. 3. Valvular heart disease: His tricuspid regurgitation is worse. He has no clinical evidence of right heart failure. Continue medical management. 4. Hypertension: Suboptimally controlled. Up titrate beta blockers as above. He agrees to monitor his blood pressure at home. 5. Atrial fibrillation with pacemaker: He is well rate controlled. He is on warfarin for CHADS2 Vasc score of 5. His INR is therapeutic. No active bleeding. 6. Hypothyroidism: Normal TSH this admission. 7. Anemia: This is chronic but slightly worse than recent baseline. No active bleeding. Outpatient follow-up. He is stable for discharge from cardiovascular standpoint. Please follow up with me in 3-4 weeks at [facility]. 02/14/18 11:44 Subjective: He feels back to baseline. He did not have any episodes of diaphoresis or nausea overnight. No chest pain, dyspnea or palpitations. Reviewed/Discussed With: hospitalist Objective: Vital Signs (8 Hrs) Temp Pulse Resp BP Pulse Ox 02/14/18 08:40 36.3 C 73 16 148/74 H 96 02/14/18 05:34 36.7 C 64 14 148/82 H 98 Intake/Output (24 Hrs) 05/07/2402/14/18 02/15/18 05:59 05:59 05:59 Intake Total 1450 Output Total 625 Balance 825 Intake: Oral (ml) 650 IV Infused (ml) 800 Ns 1,000 ml @ 75 mls/hr 800 IV CONT GRETEL Rx#: [id number] Output: Urine (ml) 625 Toilet 625 Other: Weight 74.84 kg Intake Quantity Yes Sufficient No acute distress. JVP less than 10. Irregularly irregular rhythm with soft holosystolic murmur at the left lower sternal border Lungs clear bilaterally without wheezes rhonchi or rales No lower extremity edema Result Diagrams: 02/14/18 04:02 02/14/18 04:02 Cardiac Labs: Cardiac Lab Results (72 Hrs) 02/13/18 02/13/18 18:40 12:18 Troponin I 0.014 < 0.012 Telemetry: Atrial fibrillation with controlled ventricular response and intermittent ventricular pacing ICD10 Worksheet Patient Problems: Problems Problem Status Onset Atrial fibrillation Chronic Compression fracture of thoracic vertebra Acute Inadequate pain control Acute Diaphoresis Acute Nausea Acute
[2018-02-14 11:48] VITALS: BP 129/74
--- NOTE | 2018-02-14 13:02 | PDDCSUM ---
Discharge Summary Discharge Summary: 87-year-old male with sick sinus syndrome and pacemaker; permanent atrial fibrillation; ischemic cardiomyopathy with an ejection fraction of 45%. He has valvular heart disease with moderate mitral regurgitation and severe tricuspid regurgitation. He has multivessel coronary disease status post PCI, most recent PCI was in 2006. In 2010 he had a coronary angiogram showing occluded RCA and left circumflex with collaterals from the LAD to the circumflex. He was admitted with symptoms concerning for angina. 3 troponins have been negative. Echocardiogram did not show wall motion abnormalities. Dr. Ledbetter was consulted. She has cleared him for discharge. He was hypertensive upon admission. Coreg has been increased and he is doing better He will be d/c home with a script for Nitro PRN He will f/u with his PCP in one week and with Cards in 2-4 weeks. DDX: 1. Coronary disease with possible anginal equivalent: Negative troponins. His EKG does show some anterior T-wave inversions which are new but nonspecific. No new wall motion abnormalities on echocardiogram. increased Coreg. Continue statin and aspirin. Would not perform myocardial perfusion study given his known coronary anatomy which is not amenable to further intervention. We will discharge with p.r.n. Sublingual nitroglycerin. 2. Cardiomyopathy: He does not appear to be in heart failure. Continue outpatient Lasix. 3. Valvular heart disease: His tricuspid regurgitation is worse. He has no clinical evidence of right heart failure. Continue medical management. 4. Hypertension: Suboptimally controlled. Up titrate beta blockers as above. He agrees to monitor his blood pressure at home. [facility] is being arranged 5. Atrial fibrillation with pacemaker: He is well rate controlled. He is on warfarin for CHADS2 Vasc score of 5. His INR is therapeutic. No active bleeding. 6. Hypothyroidism: Normal TSH this admission. 7. Anemia: This is chronic but slightly worse than recent baseline. No active bleeding. Outpatient follow-up. Exam: VSS, MILD HTN IRR/IRR CTA B S/NT/ND TRACE EDEMA MEDS: SEE MED REC F/U: PER ABOVE TOTAL TIME SPENT ON D/C IS 40 MINS. D/W CARDIOLOGY, CM, AND PT. ALL ARE IN AGREEMENT WITH D/C
--- NOTE | 2018-02-14 13:07 | PDIAF ---
- Diagnosis Diagnosis: ANGINA Code Status: Do Not Resuscitate - Medication Management Discharge Medications: Medications to Continue on Transfer Aspirin EC [Aspirin EC 81 mg (*)] 81 mg PO DAILY 11/27/15 [Last Taken 02/12/18] Atorvastatin Calcium [Lipitor 40 mg (*)] 40 mg PO DAILY@11/27/15 [Last Taken 02/12/18] Cholecalciferol Vit D3 [Vitamin D3 (*)] 1,000 units PO DAILY 11/27/15 [Last Taken 02/12/18] Ferrous Gluconate 324 mg PO DAILY 11/27/15 [Last Taken 02/12/18] Furosemide [Lasix 40 MG (*)] 40 mg PO DAILY@11/27/15 [Last Taken 11:30] Herbals/Supplements -Info Only 1 ea PO DAILY 11/27/15 [Last Taken 12/04/15] Levothyroxine [Synthroid 100 mcg (*)] 100 mcg PO DAILY@11/27/15 [Last Taken 02/12/18] Multivitamins [Multivitamin (*)] 1 each PO DAILY@132911/27/15 [Last Taken 02/12] Pantoprazole Sodium [Protonix 40mg (*)] 40 mg PO DAILY@11/27/15 [Last Taken 02/12/18] Valsartan [Diovan (*)] 160 mg PO HS 11/27/15 [Last Taken 02/12/18] C/E/Zn/Cu/OM3/DHA/EPA/LUT/ZEAX [Preservision Areds 2 Softgel] 1 each PO BIDMEAL 02/13/18 [Last Taken 02/12/18 18:00] Warfarin Sodium [Coumadin 3MG (*)] 3 mg PO DAILY@132902/13/18 [Last Taken 02/12] Carvedilol [Coreg (*)] 25 mg PO BIDMEAL #60 tab 02/14/18 [Last Taken Unknown] Nitroglycerin [Nitrostat 0.4 mg (*)] 0.4 mg SL Q5M PRN #20 bottle 02/14/18 [ Last Taken Unknown] Discharge Medications: Refer to the Discharge Home Medication list for PRN reason. - Orders Services needed: Home Care, Registered Nurse Home Care Face to Face: I certify that this patient was under my care and that I had the required quae-no-btwi encounter meeting the encounter requirements on the discharge day. My findings support the fact that the patient is homebound as defined in Home Care Face to Face Continued: CMS Chapter 7 Medicare Benefits Manual 30.1.1 , The condition of the patient is such that there exists a normal inability to leave home and consequently, leaving home would require a considerable and taxing effort. Isolation Type: Droplet Isolation Diet Recommendation: cardiac -low fat low salt Diet Texture: Regular Texture Diet Additional Instructions: activity as tolerated f/u: with PCP in 1 week. With Cardiology in 2-4 weeks - Follow Up Care Current Providers and Referrals: Patient,NotPresent [Unknown] - As per Instructions Lucy Ledbetter MD [Medical Doctor] - (3-4 weeks. Please call for appt)
[2018-02-14] MEDS: MULTIVITAMINS 1 EACH TAB PO SCH (14:34)
[2018-02-14] MEDS: WARFARIN SODIUM 3 MG TAB PO SCH (14:34)
--- NOTE | 2018-02-14 16:08 | ASDISCHSUM ---
Discharge Information Plan Status:Home with Home Health Medically Cleared to Leave:02/14/2018 Discharge Date:02/14/2018 02:35 PM CM D/C Disposition: ADT D/C Disposition:[id number] Projected Discharge Date:02/14/2018 11:00 AM Transportation at D/C: Discharge Delay Reason: Follow-Up Date:02/14/2018 11:00 AM Discharge Slot: Final Diagnosis: Placement Information Referral Type:*Home Health Care Services Referral ID:[id number] Provider Name:[facility] Address 1:[address] Address 2: City:[place] Selection Factors: State:[place] Patient Contact Information Contact Name:GANESH Relationship:Mel Address: Work Phone: City: [facility] Phone: [facility] Code: Email: Financial Information Financial Class:HMO and PPO Plans Primary Plan Desc:[facility] Primary Plan Number:[id number] Secondary Plan Desc: Secondary Plan Number: Assessment Information [facility] Initial CM Assessment Living Arrangements What is your living Answers: Alone arrangement? Who do you live with? Type Of Residence What kind of residence do Answers: Apartment you live in? Discharge Plan Comments Coordination Status Comments Notes: CM spoke w/ Jose RN regarding d/c POC. Pt is a 87 y/o man admitted for diaphoresis and nausea. Pt may have an ablation. Pt will most likely d/c independent when medically stable. No therapies ordered at this time. CM available for changes. Plan: Independent Date Signed: 02/14/2018 10:14 AM Electronically Signed By:VONNIE Arguello Case Management Discharge Plan Note Case Management Discharge Discharge Order Complete? Answers: Yes Patient to Obtain Answers: via Family Medications Transportation Arranged Answers: Family/Friends EMTALA Complete Answers: No Case Management Transport Answers: No Form Complete Faxed Final Orders Answers: Yes Agency/Facility Transfer Answers: Yes Report Printed & Faxed to Receiving Agency Family Notified Answers: No Discharge Comments Notes: CM spoke w/ Dr. Kruse and Dr. Ledbetter regarding d/c POC. Pt is being discharged today. Pt would benefit from having an RN. CM met w/ pt for dispo planning. Pt does not have a preference on HC agency as long as it is covered by insurance. [facility] is able to accept referral. CM sent d/c orders. CM confirmed pts address and phone number. Heavenly from [facility] came by and met w/ pt. CM available for changes. Plan: [facility] RN Date Signed: 02/14/2018 02:05 PM Electronically Signed By:VONNIE Arguello Intervention Information
== END 2018-02-14 14:35 | disposition home health service (06) ==
LOC: EDUNIT# → EDBD → F2W 14:14
PROVIDERS: ADMIT Student in an Organized Health Care Education/Training Program; ATTEND Student in an Organized Health Care Education/Training Program
DX: I25.10 Atherosclerotic heart disease of native coronary artery without angina pectoris (principal); I25.2 Old myocardial infarction; I48.91 Unspecified atrial fibrillation; I10 Essential (primary) hypertension; I73.89 Other specified peripheral vascular diseases; D69.6 Thrombocytopenia, unspecified; Z95.0 Presence of cardiac pacemaker
CPT/HCPCS: 71046; 93005; 93306; 99285; G0378

== ENCOUNTER 2018-05-01 09:39 | Emergency (ER) | payer BC ==
--- NOTE | 2018-05-01 09:40 | EDPHY ---
H & P Time Seen by Provider: 05/01/18 09:40 HPI/ROS: CHIEF COMPLAINT: Nontraumatic left shoulder pain HISTORY OF PRESENT ILLNESS: Patient had left shoulder pain starting around 7 or 8:00 p.m. Last night, increasing throughout the night. He denies any trauma or injury. Symptoms very mild at rest but moderate with movement. Not associated with chest pain or shortness of breath or skin changes or fever or chills. No weakness or numbness in the left hand or arm and no neck pain. REVIEW OF SYSTEMS: Eye: no change in vision ENT: no sore throat Cardiac: no chest pain or syncope Pulmonary: no cough or SOB Abdomen: no vomiting, diarrhea, abdominal pain Musculoskeletal: HPI Skin: no rash Neuro: no headache Constitutional: no fever : no urinary symptoms A comprehensive 10 point review of systems is otherwise negative aside from elements mentioned in the history of present illness. PAST MEDICAL HISTORY: Includes myocardial infarction, pacemaker, abdominal wall hernia. Hypertension, prostate cancer, AFib on warfarin. History of DVT. Social history: Primary care is Dr. Jose Blanca General Appearance: Alert and conversant, cooperative. Eyes: No scleral icterus. ENT, Mouth: Normal mucous membranes. Respiratory: Normal respiratory effort, breath sounds equal, lungs are clear to auscultation. Cardiovascular: Regular rate and rhythm. Gastrointestinal: Abdomen is soft and non tender. Abdominal wall ventral hernia soft and reducible. Neurological: Alert, face symmetric, normal motor and sensory in extremities. Specifically has normal radial and ulnar and median nerve strength and sensation in both hands. Skin: Warm and dry, no rashes. No zoster. No warmth or erythema or blisters. Musculoskeletal: Patient does not have bony tenderness on either upper extremity. I can range his left shoulder passively through full range of motion , but it does hurt him with extended abduction but not with rotation. Psychiatric: Not agitated. Emergency Department course/MDM: More likely muscular soft tissue, I think septic joint is unlikely. ACS unlikely. DVT or PE would be unlikely if INR is therapeutic. 1128: INR 2.09, would be unlikely to be DVT. Shoulder sling, orthopedic follow -up, Tylenol as needed for pain. Results discussed at this time with patient he is comfortable going home which I think is reasonable. Constitutional: Initial Vital Signs Temperature (C) 36.5 C 05/01/18 10:07 Heart Rate 61 07/26/18 10:07 Respiratory Rate 16 05/01/18 10:07 Blood Pressure 139/91 H 05/01/18 10:07 O2 Sat (%) 95 05/01/18 10:07 O2 Delivery Mode Room Air Allergies/Adverse Reactions: alprazolam [From Xanax] Allergy (Verified 02/13/18 06:39) nausea oxycodone Allergy (Verified 02/13/18 06:39) Home Medications: Medication Instructions Recorded Aspirin EC [Aspirin EC 81 mg (*)] 81 mg PO DAILY 11/27/15 Atorvastatin Calcium [Lipitor 40 40 mg PO DAILY@11/27/15 mg (*)] Cholecalciferol Vit D3 [Vitamin D3 1,000 units PO DAILY 11/27/15 (*)] Ferrous Gluconate 324 mg PO DAILY 11/27/15 Furosemide [Lasix 40 MG (*)] 40 mg PO DAILY@11/27/15 Herbals/Supplements -Info Only 1 ea PO DAILY 11/27/15 Levothyroxine [Synthroid 100 mcg 100 mcg PO DAILY@11/27/15 (*)] Multivitamins [Multivitamin (*)] 1 each PO DAILY@132911/27/15 Pantoprazole Sodium [Protonix 40mg 40 mg PO DAILY@11/27/15 (*)] Valsartan [Diovan (*)] 160 mg PO HS 11/27/15 C/E/Zn/Cu/OM3/DHA/EPA/LUT/ZEAX 1 each PO BIDMEAL 02/13/18 [Preservision Areds 2 Softgel] Warfarin Sodium [Coumadin 3MG (*)] 3 mg PO DAILY@132902/13/18 Carvedilol [Coreg (*)] 25 mg PO BIDMEAL #60 tab 02/14/18 Nitroglycerin [Nitrostat 0.4 mg 0.4 mg SL Q5M PRN #20 bottle 02/14/18 (*)] Medical Decision Making - Diagnostics EKG Interpretation: 12-lead EKG interpreted by me; official reading is in trace master. My interpretation is ventricular pacing rate 60 with IVCD. Imaging Results: Imaging Impressions Chest X-Ray 05/01/18 09:45 Impression: 1. New trace left pleural effusion. 2. Cardiomegaly without july failure. 3. Stable linear structure overlying the right lower lobe pulmonary vasculature , of doubtful clinical significance. 4. Additional findings as above. Shoulder X-Ray 05/01/18 09:45 Impression: Stable left shoulder radiographs. Moderate acromioclavicular degenerative arthropathy. Imaging: I viewed and interpreted images myself Differential Diagnosis: Differential considered including but not limited to DVT, cervical or thoracic nerve root impingement, ACS, septic joint, muscular or inflammatory. - Data Points Laboratory Results: Laboratory Results 05/01/18 09:57 05/01/18 09:57 05/01/18 05/01/18 05/01/18 10:00 09:57 09:57 WBC 5.51 10^3/uL 10^3/uL (3.80-9.50) RBC 3.77 10^6/uL L 10^6/uL (4.40-6.38) Hgb 12.5 g/dL L g/dL (13.7-17.5) Hct 36.9 % L % (40.0-51.0) MCV 97.9 fL fL (81.5-99.8) MCH 33.2 pg pg (27.9-34.1) MCHC 33.9 g/dL g/dL (32.4-36.7) RDW 14.1 % % (11.5-15.2) Plt Count 117 10^3/uL L 10^3/uL (150-400) MPV 10.9 fL fL (8.7-11.7) Neut % (Auto) 54.0 % % (39.3-74.2) Lymph % (Auto) 29.4 % % (15.0-45.0) Crook % (Auto) 8.2 % % (4.5-13.0) Eos % (Auto) 6.9 % % (0.6-7.6) Baso % (Auto) 1.3 % % (0.3-1.7) Nucleat RBC Rel Count 0.0 % % (0.0-0.2) Absolute Neuts (auto) 2.98 10^3/uL 10^3/uL (1.70-6.50) Absolute Lymphs (auto) 1.62 10^3/uL 10^3/uL (1.00-3.00) Absolute Monos (auto) 0.45 10^3/uL 10^3/uL (0.30-0.80) Absolute Eos (auto) 0.38 10^3/uL 10^3/uL (0.03-0.40) Absolute Basos (auto) 0.07 10^3/uL 10^3/uL (0.02-0.10) Absolute Nucleated RBC 0.00 10^3/uL 10^3/uL (0-0.01) Immature Gran % 0.2 % % (0.0-1.1) Immature Gran # 0.01 10^3/uL 10^3/uL (0.00-0.10) PT 23.5 SEC H SEC (12.0-15.0) INR 2.09 H (0.83-1.16) Sodium 137 mEq/L mEq/L (135-145) Potassium 3.8 mEq/L mEq/L (3.3-5.0) Chloride 105 mEq/L mEq/L (97-110) Carbon Dioxide 26 mEq/l mEq/l (22-31) Anion Gap 6 mEq/L L mEq/L (8-16) BUN 29 mg/dL H mg/dL (7-23) Creatinine 0.8 mg/dL mg/dL (0.7-1.3) Estimated GFR > 60 Glucose 118 mg/dL H mg/dL (70-100) Calcium 8.8 mg/dL mg/dL (8.5-10.4) POC Troponin I 05/01/18 09:55 WBC RBC Hgb Hct MCV MCH MCHC RDW Plt Count MPV Neut % (Auto) Lymph % (Auto) Crook % (Auto) Eos % (Auto) Baso % (Auto) Nucleat RBC Rel Count Absolute Neuts (auto) Absolute Lymphs (auto) Absolute Monos (auto) Absolute Eos (auto) Absolute Basos (auto) Absolute Nucleated RBC Immature Gran % Immature Gran # PT INR Sodium Potassium Chloride Carbon Dioxide Anion Gap BUN Creatinine Estimated GFR Glucose Calcium POC Troponin I 0.02 ng/mL ng/mL (0.00-0.08) Medications Given: Discontinued Medications Acetaminophen (Tylenol) 650 mg PO EDNOW ONE Stop: 05/01/18 10:18 Last Admin: 05/01/18 10:28 Dose: 650 mg Point of Care Test Results: Chemistry 05/01/18 09:55 POC Troponin I 0.02 ng/mL ng/mL (0.00-0.08) Departure - Departure Disposition: Home, Routine, Self-Care Clinical Impression: Left shoulder pain Qualifiers: Chronicity: acute Qualified Code(s): M25.512 - Pain in left shoulder Condition: Good Instructions: Shoulder Pain (ED) Referrals: Uri Blanca MD [Primary Care Provider] - As per Instructions Yash Bowers MD [Medical Doctor] - As per Instructions
--- NOTE | 2018-05-01 09:55 | CPEKG ---
Heart Rate: 60 RR Interval: 1000 P-R Interval: 204 QRSD Interval: 148 QT Interval: 476 QTC Interval: 476 P Bronson: 0 QRS Bronson: -44 T Wave Bronson: -52 EKG Severity - ABNORMAL ECG - EKG Impression: VENTRICULAR-PACED COMPLEXES EKG Impression: NONSPECIFIC IVCD WITH LAD Electronically Signed By: Wild Mercer 01-May-2018 10:19:24
[2018-05-01 10:16] LABS: PLATELET COUNT 117 10^3/uL (150-400)
[2018-05-01] MEDS ORDERED: ACETAMINOPHEN 325 MG TAB PO ONE (10:17)
[2018-05-01 11:16] LABS: INR 2.09 (0.83-1.16); PROTIME(PATIENT) 23.5 SEC (12.0-15.0)
[2018-05-01 12:36] VITALS: BP 166/98
== END 2018-05-01 12:35 | disposition home or self-care (01) ==
LOC: EDUNIT# → EDBD
DX: M25.512 Pain in left shoulder (principal); I10 Essential (primary) hypertension; I25.2 Old myocardial infarction; Z79.01 Long term (current) use of anticoagulants; Z79.82 Long term (current) use of aspirin; Z95.0 Presence of cardiac pacemaker
CPT/HCPCS: 84484-PO

== ENCOUNTER 2018-06-12 08:18 | Inpatient (IN) | payer OTHER, BC ==
[2018-06-12 08:37] LABS: PLATELET COUNT 111 10^3/uL (150-400)
--- NOTE | 2018-06-12 08:51 | EDPHY ---
H & P Stated Complaint: fatigue/nausea/diaphoresis Time Seen by Provider: 06/12/18 08:48 HPI/ROS: CHIEF COMPLAINT: Nausea, sweatiness HISTORY OF PRESENT ILLNESS: 88-year-old male with coronary artery disease and atrial fibrillation presents with nausea and sweatiness. He awoke this morning with nausea, diaphoresis and generalized weakness. The symptoms persisted for over 2 hrs, so he called 911. He continues to have nausea and generalized fatigue. Sweatiness has resolved. Symptoms are similar to prior ACS. On Coumadin and aspirin. Took aspirin this morning. No chest pain or SOB. REVIEW OF SYSTEMS: complete 10 point ROS negative except at noted in the HPI - Personal History Current Tetanus/Diphtheria Vaccine: No Tetanus Vaccine Date: < 10 YEARS - Medical/Surgical History Hx Asthma: No Hx Chronic Respiratory Disease: No Hx Diabetes: No Hx Cardiac Disease: Yes Hx Renal Disease: No Hx Cirrhosis: No Hx Alcoholism: No Hx HIV/AIDS: No Hx Splenectomy or Spleen Trauma: No Other PMH: CA x 4, pacemaker, abd surgery 2007, abd hernia, hip surgery, stents in 2 major arteries x 14, prostate ca with surgery, htn, afib, ppm, dvt, - Social History Smoking Status: Never smoked Alcohol Use: Sober Additional Social History: Client Support Consultant: Dr. Ledbetter - Physical Exam Exam: General Appearance: Alert, pleasant Eyes: Pupils equal and round, no conjunctival pallor or injection ENT, Mouth: Mucous membranes moist Neck: Normal inspection Respiratory: Rales at bases Cardiovascular: Regular rate and rhythm Gastrointestinal: Abdomen is soft and nontender Neurological: A&O, nonfocal exam Skin: Warm and dry Extremities: 1+ pitting edema Psychiatric: Mood and affect normal Constitutional: Initial Vital Signs Temperature (C) 36.5 C 06/12/18 08:26 Heart Rate 63 06/12/18 08:26 Respiratory Rate 20 06/12/18 08:26 Blood Pressure 145/86 H 06/12/18 08:26 O2 Sat (%) 94 06/12/18 08:26 O2 Delivery Mode Room Air O2 (L/minute) 2 Allergies/Adverse Reactions: alprazolam [From Xanax] Allergy (Verified 06/12/18 08:26) nausea oxycodone Allergy (Verified 06/12/18 08:26) Home Medications: Medication Instructions Recorded Aspirin EC [Aspirin EC 81 mg (*)] 81 mg PO DAILY 11/27/15 Atorvastatin Calcium [Lipitor 40 40 mg PO DAILY@18 11/27/15 mg (*)] Cholecalciferol Vit D3 [Vitamin D3 1,000 units PO DAILY 11/27/15 (*)] Ferrous Gluconate 324 mg PO DAILY 11/27/15 Furosemide [Lasix 40 MG (*)] 40 mg PO DAILY@09,0 11/27/15 Herbals/Supplements -Info Only 1 ea PO DAILY 11/27/15 Levothyroxine [Synthroid 100 mcg 100 mcg PO DAILY@11/27/15 (*)] Multivitamins [Multivitamin (*)] 1 each PO DAILY@132911/27/15 Pantoprazole Sodium [Protonix 40mg 40 mg PO DAILY@11/27/15 (*)] C/E/Zn/Cu/OM3/DHA/EPA/LUT/ZEAX 1 each PO BIDMEAL 02/13/18 [Preservision Areds 2 Softgel] Warfarin Sodium [Coumadin 3MG (*)] 3 mg PO DAILY@1330 02/13/18 Carvedilol [Coreg (*)] 25 mg PO BIDMEAL #60 tab 02/14/18 Nitroglycerin [Nitrostat 0.4 mg 0.4 mg SL Q5M PRN #20 bottle 02/14/18 (*)] Losartan Potassium [Cozaar 50 mg 50 mg PO HS 06/12/18 (*)] Melatonin [Melatonin 3 MG (*)] 3 mg PO HS PRN 06/12/18 Promethazine HCl [Phenergan 25mg 6.25 mg PO Q6HRS PRN #20 tab 06/13/18 (*)] Medical Decision Making - Diagnostics EKG Interpretation: EKG interpreted by me reveals a ventricular paced rhythm, rate 68. Interpretation: Abnormal EKG Imaging Results: Chest X-Ray 06/12/18 08:21 Impression: 1. Left lower lobe pleuroparenchymal opacity representing pneumonia versus atelectasis with possible superimposed pleural effusion. 2. Recommend follow up chest [address] chest when the patient's medical condition permits. Findings and recommendations discussed with Emergency Department physician, Faye Saldivar at 0905 hours, 06/12/2018. Final report concurs with initial preliminary interpretation. Chest x-ray independently reviewed by me reveals cardiomegaly and a left pleural effusion. Imaging: I viewed and interpreted images myself ED Course/Re-evaluation: This patient presents with typical ACS symptoms. EKG reveals a ventricular paced rhythm. Initial troponin is unremarkable. Chest x-ray reveals a possible infiltrate. Clinically, this patient does not have pneumonia. Will observe for now. Concerning presentation for ACS, will require admission for further cardiac evaluation. The hospitalist service was consulted for admission. [facility] (Nora Navarrete) was consulted and will see the patient in the hospital. Differential Diagnosis: Differential diagnosis includes though it is not limited to pneumonia, pneumothorax, pulmonary embolism, aortic dissection, pericarditis, acute coronary syndrome. - Data Points Laboratory Results: Laboratory Results 06/12/18 08:30 06/12/18 08:30 Medications Given: Discontinued Medications Aspirin Buffered (Aspirin Ec) 81 mg PO DAILY [facility] Stop: 12/10/18 08:59 Last Admin: 06/14/18 09:15 Dose: 81 mg Atorvastatin Calcium (Lipitor) 40 mg PO DAILY@18 [facility] Stop: 12/10/18 17:59 Last Admin: 06/13/18 18:28 Dose: 40 mg Calcium Carbonate (Tums) 500 - 1,000 mg PO Q4 PRN PRN Reason: NAUSEA/HEARTBURN Stop: 12/10/18 17:16 Last Admin: 06/13/18 17:22 Dose: 1,000 mg Carvedilol (Coreg) 25 mg PO BIDMEAL [facility] Stop: 12/09/18 21:14 Last Admin: 06/14/18 09:15 Dose: 25 mg Cholecalciferol (Vitamin D) 1,000 units PO DAILY [facility] Stop: 12/10/18 08:59 Last Admin: 06/14/18 09:15 Dose: 1,000 units Furosemide (Lasix) 40 mg PO DAILY@09,1330 [facility] Stop: 12/10/18 08:59 Last Admin: 06/14/18 09:15 Dose: 40 mg Sodium Chloride (Ns) 1,000 mls @ 0 mls/hr IV EDNOW ONE; Wide Open PRN Reason: Protocol Stop: 06/12/18 11:20 Last Admin: 06/12/18 13:47 Dose: 1,000 mls Levothyroxine Sodium (Synthroid) 100 mcg PO DAILY@07 [facility] Stop: 12/10/18 06:59 Last Admin: 06/14/18 06:01 Dose: 100 mcg Lorazepam (Ativan Oral Liquid) 0.25 mg PO Q4H PRN PRN Reason: Nausea/Vomiting, Use 3rd Stop: 12/10/18 12:49 Last Admin: 06/14/18 00:57 Dose: 0.25 mg Losartan Potassium (Cozaar) 50 mg PO HS [facility] Stop: 12/09/18 21:14 Last Admin: 06/13/18 21:18 Dose: 50 mg Melatonin (Melatonin) 3 mg PO HS PRN PRN Reason: sleep Stop: 12/09/18 21:02 Last Admin: 06/13/18 21:18 Dose: 3 mg Miscellaneous Medication (Ferrous Gluconate [Ferrous Gluconate]) 324 mg PO DAILY [facility] Stop: 12/10/18 08:59 Last Admin: 06/14/18 09:15 Dose: Not Given Multivitamins (Tab-A-[place]) 1 each PO DAILY@1330 [facility] Stop: 12/10/18 13:29 Last Admin: 06/13/18 13:09 Dose: 1 each Multivitamins/Minerals (Preservision Areds2 Formula) 1 each PO BIDMEAL [facility] Stop: 12/10/18 07:59 Last Admin: 06/14/18 09:15 Dose: 1 each Ondansetron HCl (Zofran) 4 mg IVP Q6H PRN PRN Reason: Nausea/Vomiting, Can't Take PO Stop: 12/09/18 19:42 Last Admin: 06/12/18 21:25 Dose: 4 mg Ondansetron HCl (Zofran Odt) 4 mg PO Q6H PRN PRN Reason: Nausea/Vomiting, Use 1st Stop: 12/09/18 19:43 Last Admin: 06/13/18 10:58 Dose: 4 mg Pantoprazole Sodium (Protonix) 40 mg PO DAILY@07 [facility] Stop: 12/10/18 06:59 Last Admin: 06/14/18 06:01 Dose: 40 mg Promethazine HCl (Phenergan) 12.5 - 25 mg PO Q6H PRN PRN Reason: Nausea/Vomiting, Use 2nd Stop: 12/10/18 12:36 Last Admin: 06/13/18 21:17 Dose: 25 mg Warfarin Sodium (Coumadin) 3 mg PO DAILY@1330 [facility] Stop: 12/10/18 13:29 Last Admin: 06/13/18 13:09 Dose: 3 mg Point of Care Test Results: Chemistry 06/12/18 08:29 POC Troponin I 0.04 ng/mL ng/mL (0.00-0.08) Departure - Departure Disposition: [facility] Acute Clinical Impression: Diaphoresis, Angina at rest Condition: Good
[2018-06-12 09:08] LABS: INR 2.16 (0.83-1.16); PROTIME(PATIENT) 24.1 SEC (12.0-15.0)
[2018-06-12] MEDS ORDERED: NITROGLYCERIN 0.4 MG BTL SL PRN ×2 (10:21→21:03)
--- NOTE | 2018-06-12 11:05 | PDCARCONS ---
Cardiology Consult Reason for Consult: Possible angina Chief Complaint: Chest discomfort with nausea Requesting Physician: Alberto History of Present Illness: 88-year-old male well known to our service last admitted in early February, severe coronary artery disease with occluded right coronary artery occluded circumflex , single left main LAD system with collateralization associated with reduced LV function 40-45% and at least moderate MR. This has been complicated by atrial fibrillation and a permanent pacemaker. He presents with a morning of what he describes as typical angina with discomfort nausea. He is pain-free on my arrival. He was uncertain of the etiology in came to the emergency department for further evaluation. He has had no symptoms for 3 and half years concerning for angina. Last coronary angiogram was 2010 at which point he was considered for coronary bypass grafting and decline based on frailty score. Patient is chronically anticoagulated. Patient has long history of DVT PE which has been exacerbated by stopping anticoagulation. He denies shortness of breath PND orthopnea. He has had no current syncope or near syncope. History Information - Allergies/Home Medication List Allergies/Adverse Reactions: alprazolam [From Xanax] Allergy (Verified 06/12/18 08:26) nausea oxycodone Allergy (Verified 06/12/18 08:26) Home Medications: Aspirin EC [Aspirin EC 81 mg (*)] 81 mg PO DAILY 11/27/15 [Last Taken 02/12/18] Atorvastatin Calcium [Lipitor 40 mg (*)] 40 mg PO DAILY@18 11/27/15 [Last Taken 02/12/18] Cholecalciferol Vit D3 [Vitamin D3 (*)] 1,000 units PO DAILY 11/27/15 [Last Taken 02/12/18] Ferrous Gluconate 324 mg PO DAILY 11/27/15 [Last Taken 02/12/18] Furosemide [Lasix 40 MG (*)] 40 mg PO DAILY@11/27/15 [Last Taken 11:30] Herbals/Supplements -Info Only 1 ea PO DAILY 11/27/15 [Last Taken 12/04/15] Levothyroxine [Synthroid 100 mcg (*)] 100 mcg PO DAILY@07 11/27/15 [Last Taken 02/12/18] Multivitamins [Multivitamin (*)] 1 each PO DAILY@13311/27/15 [Last Taken 02/12] Pantoprazole Sodium [Protonix 40mg (*)] 40 mg PO DAILY@07 11/27/15 [Last Taken 02/12/18] Valsartan [Diovan (*)] 160 mg PO HS 11/27/15 [Last Taken 02/12/18] C/E/Zn/Cu/OM3/DHA/EPA/LUT/ZEAX [Preservision Areds 2 Softgel] 1 each PO BIDMEAL 02/13/18 [Last Taken 02/12/18 18:00] Warfarin Sodium [Coumadin 3MG (*)] 3 mg PO DAILY@1330 02/13/18 [Last Taken 02/12] I have personally reviewed and updated: family history, medical history, social history, surgical history Past Medical History: - Past Medical History atrial fibrillation, coronary artery disease, myocardial infarction - Surgical History Reports: no pertinent surgical hx - Family History Positive for: non-pertinent - Social History Smoking Status: Never smoked Physical Exam Physical Exam: Temp Pulse Resp BP Pulse Ox 36.5 C 68 18 142/84 H 97 06/12/18 08:26 06/12/18 09:55 06/12/18 09:55 06/12/18 09:55 06/12/18 09:55 Constitutional: no apparent distress Eyes: anicteric sclera, No icteric sclera Ears, Nose, Mouth, Throat: moist mucous membranes Cardiovascular: systolic murmur, irregularly irregular, other (Pacer left subclavian fossa), No JVD Peripheral Pulses: 1+: carotid (R), carotid (L), femoral (R), femoral (L), dorsalis-pedis (R), dorsalis-pedis (L) Respiratory: no respiratory distress, no rales or rhonchi Gastrointestinal: normoactive bowel sounds, soft, non-tender abdomen Genitourinary: no bladder fullness Skin: warm, normal color, No rash Neurologic: AAOx3, No facial droop Psychiatric: interacting appropriately Lymph, Heme, Immunologic: no cervical LAD, no supraclavicular LAD Lab and Imaging 06/12/18 08:30 06/12/18 08:30 WBC 5.45 10^3/uL (3.80-9.50) 06/12/18 08:30 RBC 4.06 10^6/uL (4.40-6.38) L 06/12/18 08:30 Hgb 13.5 g/dL (13.7-17.5) L 06/12/18 08:30 Hct 40.1 % (40.0-51.0) 06/12/18 08:30 MCV 98.8 fL (81.5-99.8) 06/12/18 08:30 MCH 33.3 pg (27.9-34.1) 06/12/18 08:30 MCHC 33.7 g/dL (32.4-36.7) 06/12/18 08:30 RDW 14.6 % (11.5-15.2) 06/12/18 08:30 Plt Count 111 10^3/uL (150-400) L 06/12/18 08:30 MPV 11.1 fL (8.7-11.7) 06/12/18 08:30 Neut % (Auto) 59.4 % (39.3-74.2) 06/12/18 08:30 Lymph % (Auto) 25.1 % (15.0-45.0) 06/12/18 08:30 [place] % (Auto) 8.1 % (4.5-13.0) 06/12/18 08:30 Eos % (Auto) 5.9 % (0.6-7.6) 06/12/18 08:30 Baso % (Auto) 1.3 % (0.3-1.7) 06/12/18 08:30 Nucleat RBC Rel Count 0.0 % (0.0-0.2) 06/12/18 08:30 Absolute Neuts (auto) 3.24 10^3/uL (1.70-6.50) 06/12/18 08:30 Absolute Lymphs (auto) 1.37 10^3/uL (1.00-3.00) 06/12/18 08:30 Absolute Monos (auto) 0.44 10^3/uL (0.30-0.80) 06/12/18 08:30 Absolute Eos (auto) 0.32 10^3/uL (0.03-0.40) 06/12/18 08:30 Absolute Basos (auto) 0.07 10^3/uL (0.02-0.10) 06/12/18 08:30 Absolute Nucleated RBC 0.00 10^3/uL (0-0.01) 06/12/18 08:30 Immature Gran % 0.2 % (0.0-1.1) 06/12/18 08:30 Immature Gran # 0.01 10^3/uL (0.00-0.10) 06/12/18 08:30 PT 24.1 SEC (12.0-15.0) H 06/12/18 08:30 INR 2.16 (0.83-1.16) H 06/12/18 08:30 Sodium 143 mEq/L (135-145) 06/12/18 08:30 Potassium 4.3 mEq/L (3.3-5.0) 06/12/18 08:30 Chloride 106 mEq/L (97-110) 06/12/18 08:30 Carbon Dioxide 29 mEq/l (22-31) 06/12/18 08:30 Anion Gap 8 mEq/L (8-16) 06/12/18 08:30 BUN 25 mg/dL (7-23) H 06/12/18 08:30 Creatinine 0.8 mg/dL (0.7-1.3) 06/12/18 08:30 Estimated GFR > 60 06/12/18 08:30 Glucose 116 mg/dL (70-100) H 06/12/18 08:30 Calcium 9.2 mg/dL (8.5-10.4) 06/12/18 08:30 POC Troponin I 0.04 ng/mL (0.00-0.08) 06/12/18 08:29 EKG Interpretation: Positive for: other (paced) Echocardiogram: Angiogram from 2010 reviewed. Echocardiogram from February reviewed. A/P Assessment: Impression: 88-year-old frail male admitted with chest discomfort nausea. He has known severe coronary disease. Would fully anticipate if his LAD had close that he would have a catastrophic outcome as this is his only vessel. His coronary disease is complicated by LV dysfunction with EF of 40-45%, significant mitral regurgitation. Chronic atrial fibrillation requiring a pacemaker. The device appears to be working well. He is rate controlled. He is appropriately anticoagulated. He also has significant mitral regurgitation. Presentation today not consistent with heart failure without PND orthopnea. Initial troponin is negative. There are no significant changes on his ECG. Would recommend conservative therapy with continued medical management. Would consider a CT based angiogram for risk stratification assuming his troponins remain negative. No indication for a diagnostic catheterization at this point. Would consider a emergency angiography for deterioration in clinical status. 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 Ledbetter and Dr. Rutherford. Patient's remain on anticoagulation at this point with history of DVT PE with significant complications during bridging periods. Plan for early evaluation and discharge. Review of Systems Review of Systems: - Review of Systems Constitutional: denies: chills, fever EENTM: no symptoms reported Respiratory: shortness of breath. denies: wheezing Cardiac: chest pain. denies: edema, irregular heart rate, lightheadedness, palpitations, syncope Gastrointestinal/Abdominal: no symptoms reported Genitourinary: no symptoms Musculoskelatal: no symptoms Skin: no symptoms Neurological: no symptoms Hematologic/Lymphatic: no symptoms reported Immunologic/allergic: no symptoms reported
--- NOTE | 2018-06-12 11:09 | GHP ---
DATE OF ADMISSION: 06/12/2018 CHIEF COMPLAINT: Nausea, vomiting, concern for anginal equivalent. PRIMARY DIRECTOR OF INFORMATICS: Lucy Ledbetter MD HISTORY OF PRESENT ILLNESS: An 88-year-old male with SSS status post pacer, coronary disease with oc cluded RCA, left circumflex, permanent atrial fibrillation, cardiomyopathy presenting with concern fo r anginal equivalent. He awoke at 6 this morning feeling fatigued with cold sweats and nausea. Thes e are similar symptoms to his prior MIs. Denies chest pain, shortness of breath. No fevers, cough. No lower extremity edema. No numbness or tingling. Last PCI was 2006 that showed an occluded RCA and left circumflex with collaterals from the LAD. He reports having 14 stents. REVIEW OF SYSTEMS: I completed a 10-point review of systems, negative except as noted in HPI. PAST MEDICAL HISTORY: Sick sinus syndrome status post pacemaker, hypothyroidism, anemia, coronary ar steph disease, cardiomyopathy, last EF of 45%, permanent atrial fibrillation. Valvular heart disease: Severe TR, hypertension. PAST SURGICAL HISTORY: Right CHERI, pacemaker, bowel resection. FAMILY HISTORY: Dad of [place] age 83. Mother with an aneurysm. SOCIAL HISTORY: A 13-pemc-lham history, quit 47 years ago. Lives independently at the [place]. Dr singhs wine with dinner. No illicits. HOME MEDICATIONS: Coumadin 3 mg daily, valsartan 160 mg at bedtime, Protonix 40 mg daily, nitroglyce rin as needed, multivitamin, levothyroxine 100 mcg daily, herbal supplement, Lasix 40 mg twice a day, ferrous gluconate, vitamin D3, Coreg 25 mg twice daily, atorvastatin 40 mg daily, aspirin 81. ALLERGIES: Xanax, oxycodone. PHYSICAL EXAM: VITAL SIGNS: Temperature 36.5, blood pressure 142/84, heart rate is in the 60s, resp irations 18, 97% on room air. GENERAL: He is well appearing, lying in bed, no acute distress. HEEN T: PERRLA. Moist mucous membranes. CV: Regular rate and rhythm. Trace ankle edema. LUNGS: Dimi nished. Few crackles left base. Clear with cough. ABDOMEN: Soft, nontender, nondistended. Positi ve bowel sounds. : No Brandt. MUSCULOSKELETAL: 5/5 upper lower extremity strength. NEURO: 2 th rough 12 intact. PSYCH: Alert and oriented x3. LABS: INR 2, PTT 24. WBCs 5.4, hemoglobin 13, hematocrit 40, platelets 111. Sodium 143, potassium 4.3, chloride 106, carbon dioxide 29, creatinine 0.8, glucose 116, calcium 9.2. Trop is 0.04. EKG pe rsonally reviewed, V paced. Chest x-ray is personally reviewed by me. Left lower lobe opacity. ASSESSMENT AND PLAN: 1. Concern for acute coronary syndrome: Symptoms include nausea, sweats, fatigue, similar to prior [place]. Initial troponin, EKG negative for ischemia. We will repeat these. Monitor on telemetry. Dr. Adam evaluated and will possibly take to catheterization. 2. Coronary artery disease: Aspirin, statin, Coreg. 3. Hypertension. Coreg. 4. Hypothyroidism: Levothyroxine. 5. Normocytic anemia: Ferrous gluconate. 6. Permanent atrial fibrillation: Pacemaker, beta-valentin, on Coumadin. 7. Valvular heart disease: Specifically with tricuspid regurgitation. He is euvolemic. 8. Compensated cardiomyopathy: Ejection fraction of 45%, euvolemic. Continue Lasix, blood pressure medications. 9. Diet: Nothing by mouth for now. 10. Deep venous thrombosis prophylaxis: On Coumadin. 11. Disposition: Observation admission for concern for anginal equivalent, possible cardiac cathete rization. /[id number]/MODL
[2018-06-12] MEDS ORDERED: NS 1,000 ML IV ONE (11:19)
--- NOTE | 2018-06-12 14:54 | CPEKG ---
Test Reason : OPEN Blood Pressure : / mmHG Vent. Rate : 068 BPM Atrial Rate : 000 BPM P-R Int : 224 ms QRS Dur : 141 ms QT Int : 477 ms P-R-T Axes : 000 -50 -57 degrees QTc Int : 508 ms Ventricular-paced complexes Prolonged [place] interval Nonspecific IVCD with LAD Confirmed by Faye Saldivar ([id number]) on 06/12/2018 2:53:29 PM Referred By: Confirmed By:Faye Saldivar
[2018-06-12] MEDS ORDERED: ONDANSETRON 4 MG/2 ML VIAL IVP PRN (19:43)
[2018-06-12] MEDS: ONDANSETRON DISINTEGRATING 4 MG TAB PO PRN (20:04)
[2018-06-12] MEDS: LOSARTAN POTASSIUM 50 MG TAB PO SCH (21:21)
[2018-06-12] MEDS: MELATONIN 3 MG TAB PO PRN (21:22)
[2018-06-12] MEDS: CARVEDILOL 25 MG TAB PO SCH (21:35)
[2018-06-13 06:36] LABS: INR 2.18 (0.83-1.16); PROTIME(PATIENT) 24.3 SEC (12.0-15.0)
--- NOTE | 2018-06-13 06:55 | CPEKG ---
Test Reason : OPEN Blood Pressure : / mmHG Vent. Rate : 068 BPM Atrial Rate : 000 BPM P-R Int : 180 ms QRS Dur : 140 ms QT Int : 459 ms P-R-T Axes : 000 -21 -76 degrees QTc Int : 489 ms Ventricular-paced complexes Right bundle branch block Inferior infarct, old Confirmed by Jairo Modi ([id number]) on 06/13/2018 6:55:38 AM Referred By: Confirmed By:Jairo Modi
--- NOTE | 2018-06-13 08:07 | SOAPPROG ---
[facility] Progress Note Assessment/Plan: Assessment: 1. Episode of atypical chest pain now resolved 2. Severe coronary artery disease with occlusion of the [place] right coronary artery, circumflex with patent left anterior descending coronary artery. 3. Mild to moderate LV dysfunction ejection fraction 40-45%. 4. Atrial fibrillation with permanent pacemaker Impression: Atypical chest pain with no evidence of acute coronary syndrome. Troponins remain negative. Patient is feeling improved with conservative management. In light of known anatomy would recommend discharge with clinical follow-up alone. No indications for risk stratification at this point. Noninvasive testing would not be helpful with occluded right coronary artery and circumflex. The only non invasive procedure that would be helpful would be a CT based angiogram of the LAD to determine development of a new critical stenosis that would require high risk PCI. At this point I think a trial of life would be the best approach along with clinical follow-up by Dr. Ledbetter his primary felter tennis balls. Patient is rate controlled. He is appropriately anticoagulated. Pacemaker is working well. Plan: Patient could be discharged from the hospital from cardiac point of view without further testing. Continue current medical therapy. Clinical follow-up Dr. Lucy Ledbetter within 7-10 days post discharge. Continue chronic anticoagulation. I do not identify any contraindications to continuing. 06/13/18 08:04 Subjective: No further chest pain. Feeling markedly improved. No nausea vomiting. No diarrhea. Cardiac review of systems is negative for chest pain, shortness of breath, PND , orthopnea, palpitations, syncope, near syncope, edema. Objective: Medications Generic Name Dose Route Start Last Admin Trade Name Freq PRN Reason Stop Dose Admin Aspirin Buffered 81 mg 06/13/18 09:00 Aspirin Ec PO 12/10/18 08:59 DAILY [facility] Atorvastatin Calcium 40 mg 06/13/18 18:00 Lipitor PO 12/10/18 17:59 DAILY@18 [facility] Carvedilol 25 mg 06/12/18 21:15 06/12/18 21:35 Coreg PO 12/09/18 21:14 Not Given BIDMEAL [facility] Furosemide 40 mg 06/13/18 09:00 Lasix PO 12/10/18 08:59 DAILY@09,1330 [facility] Losartan Potassium 50 mg 06/12/18 21:15 06/12/18 21:21 Cozaar PO 12/09/18 21:14 50 mg HS [facility] Nitroglycerin 0.4 mg 06/12/18 10:21 Nitrostat SL 12/09/18 10:20 Q5M PRN Chest Pain Warfarin Sodium 3 mg 06/13/18 13:30 Coumadin PO 12/10/18 13:29 DAILY@1330 [facility] Laboratory Tests 06/12/18 06/12/18 08:29 08:30 Glucose 116 H POC Troponin I 0.04 Vital Signs Temp Pulse Resp BP Pulse Ox 36.8 C 68 12 148/99 H 96 06/13/18 04:00 06/13/18 04:00 06/13/18 04:00 06/13/18 04:00 06/13/18 04:00 06/12/18 06/13/18 06/14/18 05:59 05:59 05:59 Intake Total 550 Balance 550 PT 24.3 SEC (12.0-15.0) H 06/13/18 05:00 INR 2.18 (0.83-1.16) H 06/13/18 05:00 Laboratory Tests 06/12/18 06/12/18 06/13/18 08:29 15:30 05:00 INR 2.18 H POC Troponin I 0.04 Troponin I < 0.012 ICD10 Worksheet Patient Problems: Problems Problem Status Onset Atrial fibrillation Chronic Compression fracture of thoracic vertebra Acute Inadequate pain control Acute Diaphoresis Acute Nausea Acute Review of Systems - Review of Systems Constitutional: denies: chills, fever Respiratory: no symptoms reported Cardiac: no symptoms reported Gastrointestinal/Abdominal: no symptoms reported Genitourinary: no symptoms Musculoskelatal: no symptoms
[2018-06-13] MEDS: LEVOTHYROXINE 100 MCG TAB PO SCH (08:31)
[2018-06-13] MEDS: CARVEDILOL 25 MG TAB PO SCH ×2 (08:31→18:28)
[2018-06-13] MEDS: PANTOPRAZOLE SODIUM 40 MG TAB PO SCH (08:31)
[2018-06-13] MEDS: CHOLECALCIFEROL VIT D3 1,000 UNITS TAB PO SCH (08:31)
[2018-06-13] MEDS: FUROSEMIDE 40 MG TAB PO SCH ×2 (08:31→13:09)
[2018-06-13] MEDS: ASPIRIN EC 81 MG TAB PO SCH (08:31)
[2018-06-13] MEDS: PRESERVISION AREDS2 FORMULA EYE VIT 1 EACH PO SCH ×2 (08:31→18:28)
[2018-06-13] MEDS: Ferrous Gluconate [Ferrous Gluconate] 324 MG PO SCH (08:39)
[2018-06-13] MEDS ORDERED: Herbals/Supplements -Info Only PO SCH (09:00)
[2018-06-13] MEDS: ONDANSETRON DISINTEGRATING 4 MG TAB PO PRN (10:58)
[2018-06-13] MEDS ORDERED: PROMETHAZINE HCL 25 MG TAB PO PRN (12:37)
[2018-06-13] MEDS: PROMETHAZINE HCL 25 MG TAB PO PRN ×2 (12:45→21:17)
[2018-06-13] MEDS ORDERED: WARFARIN SODIUM 3 MG TAB PO SCH (13:30)
[2018-06-13] MEDS ORDERED: MULTIVITAMINS 1 EACH TAB PO SCH (13:30)
[2018-06-13 13:32] LABS: PLATELET COUNT 106 10^3/uL (150-400)
--- NOTE | 2018-06-13 14:31 | ASMTCASEMG ---
Living Arrangements What is your living Answers: Alone arrangement? Who do you live with? Type Of Residence What kind of residence do Answers: Halfway you live in? Type of Residence Facility Name Notes: [facility] Discharge Plan Comments Coordination Status Comments Notes: Pt is a 88 y/o man admitted for chest pain. PT has cleared pt to d/c home without any needs. Cards has been consulting. Needs are TBD at this time. CM to follow. Plan: TBD Date Signed: 06/13/2018 02:30 PM Electronically Signed By:VONNIE Arguello
[2018-06-13] MEDS: LORazepam 1 MG/0.5 ML UDSYR PO PRN (14:52)
[2018-06-13] MEDS ORDERED: PROMETHAZINE HCL 25 MG/ML INJ IVP PRN (15:57)
[2018-06-13] MEDS ORDERED: ONDANSETRON DISINTEGRATING 4 MG TAB PO PRN (15:58)
--- NOTE | 2018-06-13 16:04 | HOSPPROG ---
Hospitalist Progress Note Assessment/Plan: Subjective Follow-up on nausea. Patient states he was concerned about the nausea as it was felt to be his anginal equivalent past. His cardiac studies however have not show any concerning findings with normal troponins overnight. I appreciate cardiology's assistance on the case. Patient states he was able to eat breakfast today without any emesis however his nausea has persisted throughout the afternoon and seems to have gotten worse through the afternoon so we abandoned plans for discharge today. He is really not been responsive to Zofran Phenergan or lorazepam. No emesis. No focal abdominal pain. He did have a bowel movement today. Vitals as detailed below Exam General-patient appears comfortable sitting in chair at the bedside no acute distress Heart-irregular without murmurs Lungs-Clear to auscultation with normal respiratory effort Abdomen-midline scar noted from prior Asif surgeries nontender with palpation with normal bowel sounds -no Brandt catheter in place Extremities-no significant pitting edema Labs as detailed below assessment and plan Nausea-initial concern for possible acute coronary syndrome however his troponins are negative overnight. I appreciate cardiology's input on his case and will plan on outpatient follow-up. This was the nausea remains uncertain and I have recommended further evaluation with abdominal x-ray today to evaluate for the potential for ileus or small-bowel obstruction as he has had abdominal surgery in the past. Right upper quadrant ultrasound as well has been ordered for tomorrow morning. Patient will be NPO after midnight. Atrial fibrillation-rate control with Coreg and patient is anticoagulated with Coumadin. Coronary artery disease-no complaints of chest pain or breathing difficulties. Continue with aspirin statin therapy. Hypertension-continue to monitor blood pressures with current losartan and Coreg. Chronic systolic heart failure-patient's most recent echocardiogram performed earlier this year showed an estimated ejection fraction of 49%. Continue medical management as detailed above. Hypothyroidism-continue current dosing of levothyroxine. DVT prophylaxis-patient is anticoagulated. Disposition-pending further investigation of his nausea. Objective: Vital Signs Temp Pulse Resp BP Pulse Ox 36.7 C 68 16 154/91 H 93 06/13/18 15:30 06/13/18 15:30 06/13/18 15:30 06/13/18 15:30 06/13/18 15:30 Laboratory Results 06/13/18 13:20 06/13/18 13:20 06/12/18 06/13/18 06/14/18 05:59 05:59 05:59 Intake Total 550 Balance 550 PT 24.3 SEC (12.0-15.0) H 06/13/18 05:00 INR 2.18 (0.83-1.16) H 06/13/18 05:00 ICD10 Worksheet Patient Problems: Problems Problem Status Onset Diaphoresis Acute Compression fracture of thoracic vertebra Acute Inadequate pain control Acute Nausea Acute Atrial fibrillation Chronic
[2018-06-13] MEDS ORDERED: CALCIUM CARBONATE 500 MG CHEWABLE TAB PO PRN (17:17)
[2018-06-13] MEDS ORDERED: ATORVASTATIN CALCIUM 40 MG TAB PO SCH (18:00)
[2018-06-13] MEDS: LOSARTAN POTASSIUM 50 MG TAB PO SCH (21:18)
[2018-06-13] MEDS: MELATONIN 3 MG TAB PO PRN (21:18)
[2018-06-14] MEDS: LORazepam 1 MG/0.5 ML UDSYR PO PRN (00:57)
[2018-06-14 04:11] LABS: PLATELET COUNT 93 10^3/uL (150-400)
[2018-06-14 04:18] LABS: INR 2.1 (0.83-1.16); PROTIME(PATIENT) 23.6 SEC (12.0-15.0)
[2018-06-14] MEDS: LEVOTHYROXINE 100 MCG TAB PO SCH (06:01)
[2018-06-14] MEDS: PANTOPRAZOLE SODIUM 40 MG TAB PO SCH (06:01)
[2018-06-14 07:58] VITALS: BP 174/90
[2018-06-14] MEDS: PRESERVISION AREDS2 FORMULA EYE VIT 1 EACH PO SCH (09:15)
[2018-06-14] MEDS: CARVEDILOL 25 MG TAB PO SCH (09:15)
[2018-06-14] MEDS: Ferrous Gluconate [Ferrous Gluconate] 324 MG PO SCH (09:15)
[2018-06-14] MEDS: FUROSEMIDE 40 MG TAB PO SCH (09:15)
[2018-06-14] MEDS: CHOLECALCIFEROL VIT D3 1,000 UNITS TAB PO SCH (09:15)
[2018-06-14] MEDS: ASPIRIN EC 81 MG TAB PO SCH (09:15)
--- NOTE | 2018-06-14 10:55 | PDMN ---
Medical Necessity Medical necessity: [facility] Gastroenterology GR88 y/o w/ nausea, sweats, fatigue, similar to prior NH, hx CAD, NH HTN, afib, has pacemaker, valvular heart disease, EF 45%, DVT/PE, cardiology consulted and does not look to be r/t HF. Pt continues w/ nausea, worsening through afternoon without good response from Zofran, Phenergan or Ativan, per MD switch to IP status for further evaluation w/ abd Xrays and U/S, pt has potential for ileus or SBO, change to IP 06/13/18 @ 1607. Pt is hypertensive 170's/90s-100s, thrombocytopenic plt 93k. Keep NPO.
--- NOTE | 2018-06-14 16:14 | GDS ---
DISCHARGE DIAGNOSES: 1. Chest pain. 2. Nausea. HISTORY OF PRESENT ILLNESS: The patient is a pleasant 88-year-old gentleman, with a past medical his tory of coronary artery disease, with history of percutaneous intervention, who presented to the [facility] Emergency Room on 06/12/2018, with complaints of nausea. He presented as he w as concerned that during his prior myocardial infarctions he has had significant nausea associated wi th them. He was admitted for further observation and serial troponins. These were negative x2. He did have cardiac consultation during this hospitalization. He was felt stable for discharge from a c ardiac standpoint on 06/13/2018, with a plan for short-term followup with Dr. 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 The patient, however, continued to develop nausea, whic h was requiring multiple medications to help address, so we kept him another night to further evaluat e. He had an x-ray of his abdomen, which did not show any evidence of small-bowel obstruction. The patient was also moving his bowels without any difficulty. Right upper quadrant ultrasound was also obtained for further investigation. This showed evidence of cholelithiasis and gallbladder sludge, b ut no evidence of cholecystitis or choledocholithiasis. On the day of discharge, his nausea had enti rely resolved and he requested for discharge from the hospital. I reviewed the ultrasound results wi th him and stated that if he had recurrent nausea and vomiting in the future, that it could be relate d to gallstones, but it is not 100% clear at this point time if this is the source of his symptoms. HOSPITAL COURSE BY PROBLEM: 1. Nausea. Did not appear to be related to acute [place] based upon negative troponins. He could have, potentially, symptomatic gallstones, but at this time, I would recommend observation for now instead of pursuing surgical consultation. If, however, he develops recurrent symptoms, then this could be r eassessed in the future. 2. Atrial fibrillation, rate controlled with Coreg, and patient is anticoagulated with Coumadin. 3. Coronary artery disease with history of PCI. No complaints of any chest pain or difficulty breat bianca. He was continued with aspirin and statin therapy. 4. Hypertension. No changes were made during this hospitalization. 5. Chronic systolic heart failure. The patient had an echocardiogram performed earlier this year wh ich showed estimated ejection fraction of 49%. Medical management, as detailed above. 6. Hypothyroidism. He was continued on levothyroxine. DISPOSITION: He appears stable for discharge today with plan for short-term followup with Cardiology and Dr. Blanca. EXAM: VITAL SIGNS: On day of discharge, temperature 36.4; blood pressure 174/90, which was an isola rosalee elevation, otherwise generally well controlled; heart rate 70, respirations 18, saturating 94% on room air. GENERAL: Patient appeared comfortable, resting in bed, awake, alert, conversant, in no a cute distress. HEART: Irregular. No murmurs appreciated. LUNGS: Clear on auscultation with jasmin l respiratory effort. ABDOMEN: Soft, nontender, nondistended. No right upper quadrant tenderness wi th palpation. : No Brandt catheter in place. EXTREMITIES: No significant edema. NOTABLE STUDIES: As detailed above. DISCHARGE MEDICATIONS: 1. Aspirin 81 mg daily. 2. Atorvastatin 40 mg daily. 3. Coreg 25 mg twice a day. 4. Vitamin D supplementation. 5. Lasix 40 mg daily. 6. Levothyroxine 100 mcg daily. 7. Losartan 50 mg nightly. 8. Melatonin 3 mg nightly as needed. 9. Pantoprazole 40 mg daily. 10. Coumadin 3 mg daily. DISCHARGE INSTRUCTIONS: I recommended short-term followup with Cardiology as well as with Dr. Jose Blanca, his primary care provider. Thirty-five minutes' time dedicated to discharge efforts. /[id number]/MODL
--- NOTE | 2018-06-15 10:12 | ASMTLACE ---
LACE Length of stay for Answers: 1 day current admission Acuity / Level of Answers: No Care: Did the patient have an inpatient admission? Comorbidities - select Answers: Coronary Artery Disease all that apply Previous myocardial infarction Other Notes: HTN; AFib # of Emergency department Answers: 3-4 visits in the last 6 months Score: 8 Date Signed: 06/15/2018 10:12 AM Electronically Signed By:Kareen Shelton RN
--- NOTE | 2018-06-15 10:17 | ASDISCHSUM ---
Discharge Information Plan Status:Home with No Needs Medically Cleared to Leave:06/14/2018 Discharge Date:06/14/2018 12:15 PM CM D/C Disposition:Home, Routine, Self-Care ADT D/C Disposition:Home, Routine, Self-Care Projected Discharge Date:06/14/2018 12:15 PM Transportation at D/C:Family Discharge Delay Reason: Follow-Up Date:06/14/2018 12:15 PM Discharge Slot:2 - 12:01 pm - 18:00 pm Final Diagnosis:Chest pain, Afib, HTN, nausea, hypothyroid, hx of CAD Placement Information Patient Contact Information Contact Name:GANESH Relationship:Mel Address: Work Phone: City: [facility] Phone: [facility]/[employer] Code: Email: Financial Information Financial Class:Medicare Primary Plan Desc:MEDICARE INPATIENT Primary Plan Number:[id number] Secondary Plan Desc:[employer] [facility] Secondary Plan Number:[id number] Assessment Information LACE LACE Length of stay for Answers: 1 day current admission Acuity / Level of Answers: No Care: Did the patient have an inpatient admission? Comorbidities - select Answers: Coronary Artery Disease all that apply Previous myocardial infarction Other Notes: HTN; AFib # of Emergency department Answers: 3-4 visits in the last 6 months Score: 8 Date Signed: 06/15/2018 10:12 AM Electronically Signed By:Kareen Shelton RN [facility] Initial CM Assessment Living Arrangements What is your living Answers: Alone arrangement? Who do you live with? Type Of Residence What kind of residence do Answers: [facility] you live in? Type of Residence Facility Name Notes: [facility] Discharge Plan Comments Coordination Status Comments Notes: Pt is a 88 y/o man admitted for chest pain. PT has cleared pt to d/c home without any needs. Cards has been consulting. Needs are TBD at this time. CM to follow. Plan: TBD Date Signed: 06/13/2018 02:30 PM Electronically Signed By:VONNIE Arguello [facility] CM Progress Note CM Note CM Note Notes: Note for Saturday06/14/18, late entry - [employer] down for maintenance Saturday afternoon/evening Reviewed chart, spoke with WENDY Vaughn regarding discharge plan of care, pt's progress. Pt admitted with chest pain, nausea, afib, HTN, hx of CAD and hypothyroid. Per Johana, pt to discharge home independently with no identified needs. IM/KWON forms signed, placed in chart. Pt to follow up as directed. CM available for any further issues or concerns. Discharge Plan: Home independently Date Signed: 06/15/2018 10:16 AM Electronically Signed By:Kareen Shelton RN Intervention Information Intervention Type:*KWON-Signed Date of Service:06/13/2018 11:05 AM Patient Type:Observation Staff Member:Susannah Fagan Hours: Discipline: Severity: Comment: Intervention Type:*KWON-Signed Date of Service:06/15/2018 10:16 AM Patient Type:Inpatient Staff Member:WENDY Shelton Taylor Hours: Discipline: Severity: Comment: Intervention Type:*IM-Signed Date of Service:06/15/2018 10:16 AM Patient Type:Inpatient Staff Member:WENDY Shelton Taylor Hours: Discipline: Severity: Comment:
== END 2018-06-14 12:15 | disposition home or self-care (01) | DRG 445 ==
LOC: EDUNIT# → F2W 12:05 → OBSVTOIN 06-13 10:07
PROVIDERS: ADMIT Internal Medicine; ATTEND Internal Medicine
DX: K80.20 Calculus of gallbladder without cholecystitis without obstruction (principal); I11.0 Hypertensive heart disease with heart failure; I50.22 Chronic systolic (congestive) heart failure; I25.10 Atherosclerotic heart disease of native coronary artery without angina pectoris; D64.9 Anemia, unspecified; E03.9 Hypothyroidism, unspecified; I25.2 Old myocardial infarction; Z79.01 Long term (current) use of anticoagulants; Z79.82 Long term (current) use of aspirin; Z95.0 Presence of cardiac pacemaker; Z95.5 Presence of coronary angioplasty implant and graft
CPT/HCPCS: 84484-PO; 97116-GP; 97161-GP; G0378; G8978-GP-CI; G8979-GP-CI; G8980-GP-CI; J2405

== ENCOUNTER 2018-06-20 07:59 | Emergency (ER) | payer OTHER, BC ==
[2018-06-20] MEDS ORDERED: ONDANSETRON 4 MG/2 ML VIAL IVP ONE (08:22)
[2018-06-20] MEDS ORDERED: FAMOTIDINE 20 MG/NACL 50 ML IV ONE (08:23)
[2018-06-20 08:29] VITALS: BP 146/90
[2018-06-20 08:42] LABS: INR 1.96 (0.83-1.16); PROTIME(PATIENT) 22.4 SEC (12.0-15.0)
--- NOTE | 2018-06-20 08:50 | EDPHY ---
H & P Time Seen by Provider: 06/20/18 08:19 HPI/ROS: HPI Nausea, chills, weakness. 88-year-old male from the [facility] assisted living facility. This patient has a history of sick sinus syndrome. He has a pacemaker he has a history of severe coronary artery disease. He was just seen in our emergency department for these same complaints on June 13. He was admitted to the hospital overnight. His workup was reassuring. He was seen by Dr. Nascimento the cardiology service. He has a recent echocardiogram with an ejection fraction of 49%. All the patient has severe coronary artery disease he is properly anticoagulated in Dr. Adam recommended conservative medical management only. He states that last night at approximately 4:00 a.m. He woke up with chills, nausea and weakness. He describes these symptoms as identical to the symptoms he had with his "silent heart attack". He also states this is the same way he felt prior to coming into the emergency department a couple of days ago. At the time of my encounter with him he denies any symptoms. No chest pain. No shortness of breath denies nausea. No chills. ROS: Constitutional: No fever, as above. Eyes: No discharge. No changes in vision. ENT: No sore throat. No nasal congestion or rhinorrhea. Respiratory: No cough. No shortness of breath. Cardiac: No chest pain, no palpitations. Gastrointestinal: No abdominal pain, no vomiting, no diarrhea. As above. Genitourinary: No hematuria. No dysuria or increased frequency with urination. Musculoskeletal: No back pain. No neck pain. No myalgias or arthralgias. Skin: No rashes. Neurological: No headache. No focal weakness or altered sensation. Past medical history: Sick sinus syndrome status post pacemaker, hypothyroidism , anemia, coronary artery disease, cardiomyopathy, permanent atrial fibrillation on Coumadin, valvular heart disease, bowel resection. Social history: Smoker. Quit 47 years ago, lives independently at [facility]. Drinks wine with dinner. Physical Exam: General Appearance: Alert, no distress. This patient is responding to questions appropriately and in full sentences. This patient appears well- hydrated and well-nourished. Eyes: Pupils equal and round no pallor or injection. No lid edema, erythema or injection. Respiratory: There are no retractions, lungs are clear to auscultation anteriorly with good air movement bilaterally. Cardiovascular: Regular rate and rhythm. No murmur. Gastrointestinal: Abdomen is soft and nontender, no masses, bowel sounds normal. No focal tenderness at McBurney's point. No Jamison sign. Neurological: Motor sensory function is grossly intact. Cranial nerves are normal. Cerebellar function normal. Skin: Warm and dry, no rashes. Musculoskeletal: Neck is supple and nontender. Extremities are symmetrical. All joints range without pain or impingement. Psychiatric: No agitation. No depression. Database: EKG: EKG time is 8:11 a.m.; EKG shows ventricular paced complexes with right bundle branch block morphology. Ventricular rate of 63. Nonspecific T-wave abnormalities in the lateral leads. This EKG was compared to prior EKG from May 14 and shows no significant change. Interpreted by me. Imaging: Chest x-ray AP portable; the cardiac mediastinal silhouette is unremarkable. Left basilar opacity noted. No change from prior study. No acute cardiopulmonary disease process noted. Interpreted by me. Procedures: Emergency department course: Triage vital signs reviewed. He is moderately hypertensive. Vital signs are otherwise normal. The patient is doing well at this time and denies any symptoms. Cardiology has recommended medical management for this patient. An IV was placed. He was placed on a monitor. EKG obtained and reviewed by myself. Of concern is possible urinary tract infection or developing pneumonia as a source of this patient's chills and nausea. Will evaluate for this as well as possible cardiac etiology. 9:50 a.m., the patient was re-evaluated, resting comfortably at this time. He remains asymptomatic. As noted above, he was seen by Cardiology when he was last here a couple of days ago. They have recommended medical management at this time. He is not a candidate for percutaneous coronary intervention. He feels fine. He feels reassured after discussing his blood work and emergency department workup. He feels comfortable going back to [facility]. I feel this is reasonable. Follow-up and return to emergency department precautions have been reviewed with him. All of his questions were answered. He was discharged in good condition. Differential Diagnosis: The differential diagnosis on this patient includes but is not limited to viral syndrome, history of coronary artery disease. Acute coronary syndrome, urinary tract infection, serious bacterial infection unlikely. This represents a partial list of diagnoses considered. These considerations are based on history , physical exam, past history, reassessment and diagnostic testing. Smoking Status: Never smoked Constitutional: Initial Vital Signs Temperature (C) 36.6 C 06/20/18 08:00 Heart Rate 63 06/20/18 08:00 Respiratory Rate 16 06/20/18 08:00 Blood Pressure 146/90 H 06/20/18 08:00 O2 Sat (%) 95 06/20/18 08:00 O2 Delivery Mode Room Air Allergies/Adverse Reactions: alprazolam [From Xanax] Allergy (Verified 06/12/18 08:26) nausea oxycodone Allergy (Verified 06/12/18 08:26) Home Medications: Medication Instructions Recorded Aspirin EC [Aspirin EC 81 mg (*)] 81 mg PO DAILY 11/27/15 Atorvastatin Calcium [Lipitor 40 40 mg PO DAILY@11/27/15 mg (*)] Cholecalciferol Vit D3 [Vitamin D3 1,000 units PO DAILY 11/27/15 (*)] Ferrous Gluconate 324 mg PO DAILY 11/27/15 Furosemide [Lasix 40 MG (*)] 40 mg PO DAILY@11/27/15 Herbals/Supplements -Info Only 1 ea PO DAILY 11/27/15 Levothyroxine [Synthroid 100 mcg 100 mcg PO DAILY@11/27/15 (*)] Multivitamins [Multivitamin (*)] 1 each PO DAILY@132911/27/15 Pantoprazole Sodium [Protonix 40mg 40 mg PO DAILY@11/27/15 (*)] C/E/Zn/Cu/OM3/DHA/EPA/LUT/ZEAX 1 each PO BIDMEAL 02/13/18 [Preservision Areds 2 Softgel] Warfarin Sodium [Coumadin 3MG (*)] 3 mg PO DAILY@132902/13/18 Carvedilol [Coreg (*)] 25 mg PO BIDMEAL #60 tab 02/14/18 Nitroglycerin [Nitrostat 0.4 mg 0.4 mg SL Q5M PRN #20 bottle 02/14/18 (*)] Losartan Potassium [Cozaar 50 mg 50 mg PO HS 06/12/18 (*)] Melatonin [Melatonin 3 MG (*)] 3 mg PO HS PRN 06/12/18 Promethazine HCl [Phenergan 25mg 6.25 mg PO Q6HRS PRN #20 tab 06/13/18 (*)] Ondansetron Odt [Zofran Odt 4 mg 4 mg PO Q4PRN PRN #10 tab 06/20/18 (*)] Medical Decision Making - Data Points Laboratory Results: Laboratory Results 06/20/18 08:48 06/20/18 08:07 Medications Given: Discontinued Medications Famotidine (Pepcid) 20 mg PO EDNOW ONE Stop: 06/20/18 08:55 Last Admin: 06/20/18 09:00 Dose: 20 mg Famotidine/Sodium Chloride (Pepcid 20 Mg (Premix)) 50 mls @ 200 mls/hr IV EDNOW ONE Stop: 06/20/18 08:37 Last Admin: 06/20/18 08:55 Dose: Not Given Ondansetron HCl (Zofran) 4 mg IVP EDNOW ONE Stop: 06/20/18 08:23 Last Admin: 06/20/18 08:55 Dose: Not Given Ondansetron HCl (Zofran Odt) 4 mg PO EDNOW ONE Stop: 06/20/18 08:55 Last Admin: 06/20/18 09:00 Dose: 4 mg Departure - Departure Disposition: Home, Routine, Self-Care Clinical Impression: Nausea, History of coronary artery disease Condition: Good Instructions: Acute Nausea and Vomiting (ED) Additional Instructions: Read and follow provided instructions. Follow-up with your primary care physician on Saturday for re-evaluation as discussed. If your symptoms return or you have any concerns, return to the emergency department by ambulance immediately. Take medication as prescribed for nausea. Return to the emergency department for worsening symptoms, vomiting, chest pain , shortness of breath or other serious concerns. Referrals: Patient,NotPresent [Unknown] - As per Instructions Prescriptions: Ondansetron Odt [Zofran Odt 4 mg (*)] 4 mg PO Q4PRN PRN #10 tab PRN Reason: For Nausea & Vomiting
[2018-06-20] MEDS ORDERED: ONDANSETRON DISINTEGRATING 4 MG TAB ONE (08:53)
[2018-06-20] MEDS ORDERED: FAMOTIDINE 20 MG TAB ONE (08:53)
[2018-06-20] MEDS ORDERED: ONDANSETRON DISINTEGRATING 4 MG TAB PO ONE (08:54)
[2018-06-20] MEDS ORDERED: FAMOTIDINE 20 MG TAB PO ONE (08:54)
--- NOTE | 2018-06-20 15:00 | CPEKG ---
Test Reason : OPEN Blood Pressure : / mmHG Vent. Rate : 063 BPM Atrial Rate : 000 BPM P-R Int : 196 ms QRS Dur : 138 ms QT Int : 477 ms P-R-T Axes : 000 -31 -56 degrees QTc Int : 489 ms Ventricular-paced complexes Right bundle branch block Nonspecific T abnormalities, lateral leads Confirmed by Fredi Berrios ([id number]) on 06/20/2018 2:59:53 PM Referred By: Confirmed By:Fredi Berrios
== END 2018-06-20 10:39 | disposition home or self-care (01) ==
LOC: EDUNIT#
DX: R11.0 Nausea (principal); R68.83 Chills (without fever); R53.1 Weakness; F17.200 Nicotine dependence, unspecified, uncomplicated; Z86.79 Personal history of other diseases of the circulatory system

== ENCOUNTER 2018-09-04 08:55 | Observation (INO) | payer BC ==
[2018-09-04 09:32] LABS: PLATELET COUNT 117 10^3/uL (150-400)
--- NOTE | 2018-09-04 09:38 | EDPHY ---
H & P Stated Complaint: SOB, cardiac issues upon waking. Time Seen by Provider: 09/04/18 09:20 HPI/ROS: CHIEF COMPLAINT: Diaphoresis, SOB HISTORY OF PRESENT ILLNESS: 88-year-old male with coronary artery disease s/p multiple cardiac stents presents with diaphoresis and nausea. He awoke at 5:00 a.m. with typical cardiac symptoms, including SOB, nausea and diaphoresis. Moderate SOB, diaphoresis and nausea without associated sx. He took nitroglycerin x 2 with some relief. No aggravating factors. Sx lasted 1.5 hrs and then completely resolved. Aspirin taken prior to arrival. Currently is asymptomatic. No recent change in medications. No chest pain or SOB. REVIEW OF SYSTEMS: complete 10 point ROS reviewed and is negative except for the noted elements in the HPI - Personal History Current Tetanus Diphtheria and Acellular Pertussis (TDAP): Yes Tetanus Vaccine Date: < 10 YEARS - Medical/Surgical History Hx Asthma: No Hx Chronic Respiratory Disease: No Hx Diabetes: No Hx Cardiac Disease: Yes Hx Renal Disease: No Hx Cirrhosis: No Hx Alcoholism: No Hx HIV/AIDS: No Hx Splenectomy or Spleen Trauma: No Other PMH: CA x 4, pacemaker, abd surgery 2007, abd hernia, hip surgery, stents in 2 major arteries x 14, prostate ca with surgery, htn, afib, ppm, dvt, - Social History Smoking Status: Never smoked Alcohol Use: Sober Drug Use: None 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 - Physical Exam Exam: General Appearance: Alert, pleasant Eyes: Pupils equal and round, no conjunctival pallor or injection ENT, Mouth: Mucous membranes moist Neck: Normal inspection Respiratory: Lungs are clear to auscultation Cardiovascular: Regular rate and rhythm Gastrointestinal: Abdomen is soft and nontender Neurological: A&O, nonfocal exam Skin: Warm and dry, no rash Extremities: Trace bilateral pedal edema Psychiatric: Mood and affect normal Constitutional: Initial Vital Signs Heart Rate 62 09/04/18 09:01 Respiratory Rate 16 09/04/18 09:01 Blood Pressure 150/88 H 09/04/18 09:01 O2 Sat (%) 97 09/04/18 09:01 O2 Delivery Mode Nasal Cannula O2 (L/minute) 2 Allergies/Adverse Reactions: alprazolam [From Xanax] Allergy (Verified 06/12/18 08:26) nausea oxycodone Allergy (Verified 06/12/18 08:26) Home Medications: Medication Instructions Recorded Aspirin EC [Aspirin EC 81 mg (*)] 81 mg PO DAILY 11/27/15 Atorvastatin Calcium [Lipitor 40 40 mg PO DAILY18 11/27/15 mg (*)] Cholecalciferol Vit D3 [Vitamin D3 1,000 units PO DAILY 11/27/15 (*)] Ferrous Gluconate 324 mg PO DAILY 11/27/15 Furosemide [Lasix 40 MG (*)] 40 mg PO BID@11/27/15 Herbals/Supplements -Info Only 1 ea PO DAILY 11/27/15 Levothyroxine [Synthroid 100 mcg 100 mcg PO DAILY@11/27/15 (*)] Multivitamins [Multivitamin (*)] 1 each PO DAILY@132911/27/15 Pantoprazole Sodium [Protonix 40mg 40 mg PO DAILY@11/27/15 (*)] C/E/Zn/Cu/OM3/DHA/EPA/LUT/ZEAX 1 each PO BIDMEAL 02/13/18 [Preservision Areds 2 Softgel] Warfarin Sodium [Coumadin 3MG (*)] 3 mg PO DAILY@1330 02/13/18 Carvedilol [Coreg (*)] 25 mg PO BIDMEAL #60 tab 02/14/18 Nitroglycerin [Nitrostat 0.4 mg 0.4 mg SL Q5M PRN #20 bottle 02/14/18 (*)] Losartan Potassium [Cozaar 50 mg 50 mg PO HS 06/12/18 (*)] Medical Decision Making - Diagnostics EKG Interpretation: EKG interpreted by me reveals a ventricular paced rhythm and likely underlying sinus rhythm, right bundle branch block. Interpretation: Abnormal EKG Imaging Results: Imaging Impressions Chest X-Ray 09/04/18 09:20 Impression: 1. Stable dense consolidation or atelectasis along with effusion left base. If indicated, consider CT chest with contrast to evaluate underlying etiology. This process has developed since Feb, 2018. Imaging: I viewed and interpreted images myself ED Course/Re-evaluation: This patient presents with anginal-equivalent symptoms. Stat EKG reveals no evidence of ischemia, initial troponin is normal. child monitor reveals V- paced rhythm, alternating with likely sinus rhythm. However, he may also be having asymptomatic sinus pauses without electronic pacemaker capture, seen on residential monitor (vs very low amplitude sinus rhythm). [employer] called for pacemaker interrogation; pacemaker functioning well, no sinus pauses present. Pt remained asymptomatic throughout ED stay. Concern for ACS, given known CAD and prolonged sx. Will need admission for further cardiac eval. The hospitalist service was consulted for admission. Differential Diagnosis: Differential diagnosis includes though it is not limited to pneumonia, pneumothorax, pulmonary embolism, aortic dissection, pericarditis, acute coronary syndrome. - Data Points Laboratory Results: Laboratory Results 09/04/18 09:10 09/04/18 09:10 09/04/18 09/04/18 09/04/18 09:16 09:10 09:10 WBC RBC Hgb Hct MCV MCH MCHC RDW Plt Count MPV Neut % (Auto) Lymph % (Auto) [place] % (Auto) Eos % (Auto) Baso % (Auto) Nucleat RBC Rel Count Absolute Neuts (auto) Absolute Lymphs (auto) Absolute Monos (auto) Absolute Eos (auto) Absolute Basos (auto) Absolute Nucleated RBC Immature Gran % Immature Gran # D-Dimer 0.40 ug/mLFEU ug/mLFEU (0.00-0.50) Sodium 143 mEq/L mEq/L (135-145) Potassium 4.0 mEq/L mEq/L (3.3-5.0) Chloride 106 mEq/L mEq/L (97-110) Carbon Dioxide 29 mEq/l mEq/l (22-31) Anion Gap 8 mEq/L mEq/L (6-14) BUN 28 mg/dL H mg/dL (7-23) Creatinine 0.8 mg/dL mg/dL (0.7-1.3) Estimated GFR > 60 Glucose 107 mg/dL H mg/dL (70-100) Calcium 8.8 mg/dL mg/dL (8.5-10.4) POC Troponin I 0.02 ng/mL ng/mL (0.00-0.08) NT-Pro-B Natriuret Pep 1640 pg/mL H pg/mL (0-450) 09/04/18 09:10 WBC 5.86 10^3/uL 10^3/uL (3.80-9.50) RBC 3.80 10^6/uL L 10^6/uL (4.40-6.38) Hgb 12.5 g/dL L g/dL (13.7-17.5) Hct 37.3 % L % (40.0-51.0) MCV 98.2 fL fL (81.5-99.8) MCH 32.9 pg pg (27.9-34.1) MCHC 33.5 g/dL g/dL (32.4-36.7) RDW 14.3 % % (11.5-15.2) Plt Count 117 10^3/uL L 10^3/uL (150-400) MPV 11.6 fL fL (8.7-11.7) Neut % (Auto) 66.5 % % (39.3-74.2) Lymph % (Auto) 17.6 % % (15.0-45.0) [place] % (Auto) 9.6 % % (4.5-13.0) Eos % (Auto) 4.8 % % (0.6-7.6) Baso % (Auto) 1.0 % % (0.3-1.7) Nucleat RBC Rel Count 0.0 % % (0.0-0.2) Absolute Neuts (auto) 3.90 10^3/uL 10^3/uL (1.70-6.50) Absolute Lymphs (auto) 1.03 10^3/uL 10^3/uL (1.00-3.00) Absolute Monos (auto) 0.56 10^3/uL 10^3/uL (0.30-0.80) Absolute Eos (auto) 0.28 10^3/uL 10^3/uL (0.03-0.40) Absolute Basos (auto) 0.06 10^3/uL 10^3/uL (0.02-0.10) Absolute Nucleated RBC 0.00 10^3/uL 10^3/uL (0-0.01) Immature Gran % 0.5 % % (0.0-1.1) Immature Gran # 0.03 10^3/uL 10^3/uL (0.00-0.10) D-Dimer Sodium Potassium Chloride Carbon Dioxide Anion Gap BUN Creatinine Estimated GFR Glucose Calcium POC Troponin I NT-Pro-B Natriuret Pep Medications Given: Atorvastatin Calcium (Lipitor) 40 mg PO DAILY18 [facility] Stop: 03/03/19 17:59 Last Admin: 09/04/18 18:04 Dose: 40 mg Carvedilol (Coreg) 25 mg PO BIDMEAL [facility] Stop: 03/03/19 17:59 Last Admin: 09/04/18 18:05 Dose: 25 mg Furosemide (Lasix) 40 mg PO BID@09,1330 [facility] Stop: 03/03/19 13:29 Last Admin: 09/04/18 13:06 Dose: 40 mg Isosorbide Mononitrate (Imdur) 30 mg PO DAILY [facility] Stop: 03/03/19 12:29 Last Admin: 09/04/18 13:07 Dose: 30 mg Multivitamins (Tab-A-[place]) 1 each PO DAILY@1330 [facility] Stop: 03/03/19 13:29 Last Admin: 09/04/18 13:07 Dose: 1 each Multivitamins/Minerals (Preservision Areds2 Formula) 1 each PO BIDMEAL [facility] Stop: 03/03/19 17:59 Last Admin: 09/04/18 18:04 Dose: 1 each Warfarin Sodium (Coumadin) 3 mg PO DAILY@1330 [facility] Stop: 03/03/19 13:29 Last Admin: 09/04/18 13:07 Dose: 3 mg Point of Care Test Results: Chemistry 09/04/18 09:16 POC Troponin I 0.02 ng/mL ng/mL (0.00-0.08) Departure - Departure Disposition: [facility] Acute Clinical Impression: Unstable angina Condition: Fair
[2018-09-04] MEDS ORDERED: ACETAMINOPHEN 325 MG TAB PO PRN (11:50)
[2018-09-04] MEDS ORDERED: ONDANSETRON 4 MG/2 ML VIAL IVP PRN (11:50)
[2018-09-04] MEDS ORDERED: ONDANSETRON DISINTEGRATING 4 MG TAB PO PRN (11:50)
[2018-09-04 12:57] LABS: INR 1.78 (0.83-1.16); PROTIME(PATIENT) 20.8 SEC (12.0-15.0)
[2018-09-04] MEDS: FUROSEMIDE 40 MG TAB PO SCH (13:06)
[2018-09-04] MEDS: WARFARIN SODIUM 3 MG TAB PO SCH (13:07)
[2018-09-04] MEDS: ISOSORBIDE MONONITRATE 30 MG TAB.SR PO SCH (13:07)
[2018-09-04] MEDS: MULTIVITAMINS 1 EACH TAB PO SCH (13:07)
--- NOTE | 2018-09-04 13:09 | GHP ---
DATE OF ADMISSION: 09/04/2018 HISTORY: The patient is a pleasant 88-year-old gentleman with history of coronary artery disease and chronic angina, as well as atrial fibrillation and VTE, who presents with diaphoresis and nausea anurag t began at about 5:00 this morning when he woke up. He took nitroglycerin and it has fully resolved over a number of hours. He did not have chest pain. This is consistent with his anginal equivalent. I think the exact same symptoms that brought him to a June 2018 appointment. He was started o n Imdur at that time, but never fully started it. His coronary disease is felt to be difficult to intervene upon. He had been recommended for bypass i n 2010, was declined at that time. The patient asked he wants to know how important it is that he report to the hospital for each of the se symptoms. He is not short of breath. He does not have lower extremity edema. REVIEW OF SYSTEMS: A complete 10-point review of systems conducted, negative except as noted in the HPI. PAST MEDICAL HISTORY: 1. Coronary artery disease. He has occluded RCA and left circumflex with collaterals from the LAD. He has apparently 14 stents. 2. He had sick sinus syndrome with pacemaker, hypothyroidism, anemia, cardiomyopathy with an EF of 4 5%, permanent atrial fibrillation. 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 SURGICAL HISTORY: Has history of total hip arthroplasty and bowel resection. FAMILY HISTORY: Father of [place] at age 83. SOCIAL HISTORY: Thirty pack year history. Quit 47 years ago. Lives independent at the [facility]. D rinks wine with dinner. 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 PHYSICAL EXAMINATION: VITAL SIGNS: Temp 36.6, blood pressure 150/88, now 137/84, pulse in the 60s, breathing 16 times a minute, 97% on 2 L. GENERAL: No acute distress. HEENT: Sclerae anicteric. O ropharynx clear. Mucous membranes are moist. NECK: Supple without lymphadenopathy or JVD. LUNGS: Clear to auscultation bilaterally. HEART: S1, S2 with a holosystolic murmur. ABDOMEN: Soft, nont raheel, nondistended. LOWER EXTREMITIES: No edema. Calves are nontender. SKIN: Without rash. JENSEN ROLOGIC: Nonfocal. LABORATORY: White count 5.9, hematocrit 37, platelets are 117,000. D-dimer 0.40, which is a normal value. Sodium 143, potassium 4.0, chloride 106, bicarbonate 29, BUN 28, creatinine 0.8. These are a bout his baseline values. BNP is elevated at 1640. He has had values much higher than this, his hig h is 2800. This appears to be about his baseline. Point of care troponin is 0.02, which is a normal value. His heart score is 5, which is intermediate. Chest x-ray shows chronic left pleural effusio n versus consolidation. EKG shows ventricular paced rhythm with right bundle branch block pattern. There are some T-wave inversions that are perhaps greater than a previous EKG. I have discussed the case with Dr. Meryl Saldivar in the emergency department. ASSESSMENT/PLAN: 88-year-old gentleman with coronary artery disease, presents with anginal symptoms. 1. Anginal symptoms/coronary artery disease. The patient has known coronary artery disease and is d ifficult, if not impossible, to revascularize coronary disease that he has an LAD with multiple colla terals. Certainly, it seems that Imdur would be a good medication for him, but I encouraged him to t mika it. He is going to be visited by his youth program director for further evaluation for hopefully instituti on of Imdur therapy. He takes carvedilol and losartan and certainly has room to move should he becom e hypotensive from the nitrates. 2. I have not ordered any provocative testing at this time, as I think that probably no further test ing will be obtained. 3. Atrial fibrillation. The patient is in atrial fibrillation. He is anticoagulated. 4. Hypertension. The patient is hypertensive. I am going to add Imdur to his medication regimen. We will give a dose this afternoon and see how he does with it. 5. Prophylaxis therapeutically anticoagulated. DISPOSITION: 1. Observation status. /[id number]/MODL
--- NOTE | 2018-09-04 15:08 | CPEKG ---
Test Reason : OPEN Blood Pressure : / mmHG Vent. Rate : 071 BPM Atrial Rate : 000 BPM P-R Int : 188 ms QRS Dur : 150 ms QT Int : 479 ms P-R-T Axes : 000 -19 -36 degrees QTc Int : 521 ms Afib/flut and V-paced complexes IVCD, consider atypical RBBB Confirmed by Faye Saldivar ([id number]) on 09/04/2018 3:07:41 PM Referred By: Confirmed By:Faye Saldivar
--- NOTE | 2018-09-04 15:08 | CPEKG ---
Test Reason : OPEN Blood Pressure : / mmHG Vent. Rate : 062 BPM Atrial Rate : 000 BPM P-R Int : 232 ms QRS Dur : 146 ms QT Int : 482 ms P-R-T Axes : 000 -32 -59 degrees QTc Int : 490 ms Afib/flut and V-paced complexes Right bundle branch block Confirmed by Faye Saldivar ([id number]) on 09/04/2018 3:07:47 PM Referred By: Confirmed By:Faye Sladivar
--- NOTE | 2018-09-04 16:52 | PDCARPN ---
Cardiology Progress Note Assessment/Plan: Assessment/plan: 88-year-old male with sick sinus syndrome status post pacemaker , permanent atrial fibrillation, ischemic cardiomyopathy with an ejection fraction of 45%. He has valvular heart disease with moderate mitral regurgitation and severe tricuspid regurgitation. He has multivessel coronary disease status post PCI, most recent PCI was in 2006. in 2010 he had a coronary angiogram showing occluded RCA and left circumflex with collaterals from the LAD to the circumflex. Now presents with his anginal equivalent. 1st troponin negative. He is currently symptom free. 1. Angina/coronary disease: Suboptimal candidate for repeat catheterization. Negative troponin. He has been started on Imdur which I agree with. Continue his other cardiac medications. If he continues to have symptoms would consider repeat catheterization. Patient is in agreement with conservative management for now. 2. Atrial fibrillation that is permanent. Pacemaker. He had a normal pacer check in our office on August 21. He is rate controlled. He is anticoagulated. 3. Valvular heart disease with severe TR and moderate MR. Does have slightly elevated neck veins but otherwise does not appear in overt failure. He takes oral Lasix. We continue this current dose. 4. Abnormal chest x-ray: This shows consolidation along the left base which has developed since February 2018. Recommend either inpatient or outpatient chest CT. Discussed with Dr. Bush. He is stable for discharge from a cardiac standpoint with close outpatient follow-up. 09/04/18 16:55 Subjective: He woke up this morning at 5:00 a.m. with nausea and diaphoresis which has previously been his anginal equivalent. This was somewhat responsive to nitroglycerin but recurred and he took another nitroglycerin and reported to the ER. His symptoms have since resolved. Over the preceding several days he has not had these symptoms nor has he had chest pain, dyspnea, or lower extremity edema. He has not had abdominal pain or diarrhea. He denies fever. He does have a chronic dry cough. Reviewed/Discussed With: hospitalist Time Spent with Patient: greater than 25 minutes Time Spent with Patient: Greater than 25 minutes spent on this patients care, greater than 50% of time spent counseling, educating, and coordinating care regarding the above mentioned plan. Objective: Vital Signs (8 Hrs) Temp Pulse Resp BP Pulse Ox 09/04/18 16:38 36.4 C 67 16 121/85 H 95 09/04/18 13:07 137/84 H 09/04/18 10:49 59 L 17 137/84 H 96 Intake/Output (24 Hrs) 09/03/18 09/04/18 09/05/18 05:59 05:59 05:59 Intake Total 0 Balance 0 Intake: IV Infused (ml) 0 Other: Weight 76.9 kg Number of Voids 0 NAD JVP 14. Irreg irreg. Soft holosystolic murmur LLSB and apex Decreased breath sounds left base Trace bilat LE edema. Chronic venous stasis Result Diagrams: 09/04/18 09:10 09/04/18 09:10 Cardiac Labs: Cardiac Lab Results (72 Hrs) 09/04/18 13:00 Troponin I < 0.012 EKG: Reviewed: AF with RBBB. Intermittent V pacing Telemetry: AF with intermittent V pacing ICD10 Worksheet Patient Problems: Problems Problem Status Onset Angina at rest Acute Compression fracture of thoracic vertebra Acute Diaphoresis Acute Inadequate pain control Acute Nausea Acute Atrial fibrillation Chronic
[2018-09-04] MEDS ORDERED: ATORVASTATIN CALCIUM 40 MG TAB PO SCH (18:00)
[2018-09-04] MEDS: PRESERVISION AREDS2 FORMULA EYE VIT 1 EACH PO SCH (18:04)
[2018-09-04] MEDS: CARVEDILOL 25 MG TAB PO SCH (18:05)
[2018-09-04] MEDS ORDERED: IOPAMIDOL (ISOVUE-300) 100 ML BTL ONE (20:30)
[2018-09-04] MEDS ORDERED: LOSARTAN POTASSIUM 50 MG TAB PO SCH (21:00)
[2018-09-04] MEDS ORDERED: traZODone 100 MG TAB PO PRN (21:07)
[2018-09-05 04:17] LABS: INR 1.91 (0.83-1.16)
[2018-09-05] MEDS ORDERED: LEVOTHYROXINE 100 MCG TAB PO SCH (07:00)
[2018-09-05] MEDS ORDERED: PANTOPRAZOLE SODIUM 40 MG TAB PO SCH (07:00)
[2018-09-05] MEDS: PRESERVISION AREDS2 FORMULA EYE VIT 1 EACH PO SCH (08:43)
[2018-09-05] MEDS: FUROSEMIDE 40 MG TAB PO SCH ×2 (08:43→14:02)
[2018-09-05] MEDS: ISOSORBIDE MONONITRATE 30 MG TAB.SR PO SCH (08:43)
[2018-09-05] MEDS: CARVEDILOL 25 MG TAB PO SCH (08:44)
[2018-09-05] MEDS ORDERED: ASPIRIN EC 81 MG TAB PO SCH (09:00)
[2018-09-05] MEDS ORDERED: FERROUS SULFATE 325 MG TAB PO SCH (09:00)
[2018-09-05] MEDS ORDERED: Herbals/Supplements -Info Only PO SCH (09:00)
[2018-09-05] MEDS ORDERED: CHOLECALCIFEROL VIT D3 1,000 UNITS TAB PO SCH (09:00)
--- NOTE | 2018-09-05 09:51 | HOSPPROG ---
Hospitalist Progress Note Assessment/Plan: 88 yo M w cad a/w anginal sx. incidentally discovered LL infiltrate/effusion cad w angina: asa/stati/BB/arb add imdur trop neg no clear options for revascularization LLL infiltrate/effusion: imaging c/w pneumonia but minimal sx discussed options of treatment ane eval 1. thoracentesis 2. [employer] eval 3. course of abx diaphoresis: felt anginal rquiv dispo: home today after above Subjective: CT w LLL infiltrate, effusion. images interp by me Objective: Vital Signs Temp Pulse Resp BP Pulse Ox 36.3 C 93 20 118/73 93 09/05/18 07:57 09/05/18 08:44 09/05/18 07:57 09/05/18 08:44 09/05/18 07:57 09/04/18 09/05/18 09/06/18 05:59 05:59 05:59 Intake Total 350 Balance 350 PT 22.0 SEC (12.0-15.0) H 09/05/18 03:40 INR 1.91 (0.83-1.16) H 09/05/18 03:40 - Physical Exam Constitutional: no apparent distress, appears nourished Eyes: PERRL, anicteric sclera Ears, Nose, Mouth, Throat: moist mucous membranes, hearing normal Cardiovascular: regular rate and rhythym, no murmur, rub, or gallop Respiratory: no respiratory distress, other (crackle sat L base) Gastrointestinal: normoactive bowel sounds, soft, non-tender abdomen Genitourinary: no bladder fullness, No enriquez in urethra Skin: warm, normal color Musculoskeletal: full muscle strength, no muscle tenderness Neurologic: AAOx3 Psychiatric: interacting appropriately ICD10 Worksheet Patient Problems: Problems Problem Status Onset Unstable angina Acute Angina at rest Acute Compression fracture of thoracic vertebra Acute Diaphoresis Acute Inadequate pain control Acute Nausea Acute Atrial fibrillation Chronic
--- NOTE | 2018-09-05 10:08 | ASMTCMCOM ---
CM Note CM Note Notes: Pt is a 88 y/o man admitted with diaphoresis and nausea. Pt has a hx of CAD, chronic angina, afib and VTE. Pt lives at the [facility]. Therapies have been ordered and awaiting recommendations. Needs are TBD at this time. CM to follow. Plan: TBD Date Signed: 09/05/2018 10:08 AM Electronically Signed By:VONNIE Arguello
[2018-09-05 10:20] LABS: PLATELET COUNT 110 10^3/uL (150-400)
--- NOTE | 2018-09-05 13:40 | PDCARPN ---
Cardiology Progress Note Chief Complaint: nausea/diaphoresis concerning for angina/ pleural effusion Assessment/Plan: Assessment: 88M with SSS/ppm, permanent AF, ICM 45-50%, multivessel CAD s/p PCIs with last in 2006, occluded RCA/LCx with LAD collateralizing LCx (on last cath 2010), moderate MR, severe TR, noc hypoxia on O2, who presents with nausea and diaphoresis, which have been his previous anginal equivalents. #. angina: has now started Imdur which he had not been taking no events overnight #. CAD. on appropriate medical therapy with ASA, BB, ARB, and statin #. R>L pleural effusion agree with thoracentesis for therapeutic/diagnostic purposes #. permanent AF: continue Warfarin h/o extensive clotting when taken off AC in the past rates appear controlled #. Mod MR/severe TR: continue current dosing of Lasix 09/05/18 13:42 Subjective: Had some pnd lying down today relieved with putting on O2. Objective: Vital Signs (8 Hrs) Temp Pulse Resp BP Pulse Ox 09/05/18 11:40 97.9 F 77 15 124/77 H 96 09/05/18 08:44 93 118/73 09/05/18 08:43 118/73 09/05/18 07:57 97.4 F 93 20 118/73 93 Intake/Output (24 Hrs) 09/04/18 09/05/18 09/06/18 05:59 05:59 05:59 Intake Total 350 Balance 350 Intake: Oral (ml) 350 IV Infused (ml) 0 Other: Weight 76.9 kg Intake Quantity Yes Sufficient Number of Voids 0 Toilet 3 Result Diagrams: 09/05/18 10:10 09/04/18 09:10 Cardiac Labs: Cardiac Lab Results (72 Hrs) 09/04/18 09/04/18 19:00 13:00 Troponin I 0.017 < 0.012 Telemetry: AF with some paced beats and some PVCs - Physical Exam Constitutional: no apparent distress Eyes: anicteric sclera Cardiovascular: systolic murmur, irregularly irregular Respiratory: clear to auscultate bilat, no crackles, no wheezes, reduced air movement Gastrointestinal: normoactive bowel sounds, no tenderness Neurologic: AAOx3 Psychiatric: cooperative, interactive ICD10 Worksheet Patient Problems: Problems Problem Status Onset Unstable angina Acute Angina at rest Acute Compression fracture of thoracic vertebra Acute Diaphoresis Acute Inadequate pain control Acute Nausea Acute Atrial fibrillation Chronic
[2018-09-05] MEDS ORDERED: LIDOCAINE 1% 300 MG/30 ML SDV ONE (13:52)
[2018-09-05] MEDS: WARFARIN SODIUM 3 MG TAB PO SCH (14:02)
[2018-09-05] MEDS: MULTIVITAMINS 1 EACH TAB PO SCH (14:02)
--- NOTE | 2018-09-05 15:09 | PDRADPN ---
Radiology Procedure Note Date of Procedure: 09/05/18 Radiologist: Tayo Alonzo Anesthesia: Local (Specify) Pre-op Diagnosis: Left Pleureal effusion - thoracentesis Post-op Diagnosis: Left Pleureal effusion - thoracentesis Indication: Pleureal effusion Procedure: Left thoracentesis Finding(s): Smal left pleural effusion, 800 mL sent to lab for analysis. Inf/Abcess present in the surg proc area at time of surgery?: No
[2018-09-05 15:19] VITALS: BP 123/74
--- NOTE | 2018-09-05 16:12 | ASMTLACE ---
LACE Length of stay for Answers: 1 day current admission Acuity / Level of Answers: No Care: Did the patient have an inpatient admission? Comorbidities - select Answers: Coronary Artery Disease all that apply Previous myocardial infarction Other Notes: Hx of prostate cancer; HTN; DVT # of Emergency department Answers: 3-4 visits in the last 6 months Score: 8 Date Signed: 09/05/2018 04:12 PM Electronically Signed By:VONNIE Arguello
--- NOTE | 2018-09-05 16:14 | ASMTCMCOM ---
CM Note CM Note Notes: Pts case discussed w/ WENDY Powell. CM met w/ pt and son for dispo planning. PT is recommending HC. SPL and OT have cleared pt to d/c without any needs. Pt is not interested in HC at this time. Pt understands that he can call his PCP if he changes his mind. Pt also knows he can get outpatient rehab if he needs it. CM available for changes. Plan: Independent Date Signed: 09/05/2018 04:13 PM Electronically Signed By:VONNIE Arguello
--- NOTE | 2018-09-06 06:12 | GDS ---
DISCHARGE DIAGNOSES: 1. Coronary artery disease that is not felt to be easily revascularizable at this point in time with breakthrough angina. 2. Left lower lobe infiltrate with exudative pleural effusion. 3. History of prostate cancer. 4. Sick sinus syndrome. 5. History of venous thromboembolism. Please see admission history and physical by Dr. Ysah Bush. The patient presented with diaphore sis, lightheadedness, nausea, consistent with prior anginal symptoms. Negative troponins, nonischemi c EKG. Seen by his machine taper, who felt that a stress test is probably not warranted given his com plex coronary anatomy. This is detailed elsewhere in the medical record. The patient had a chest x-ray showing left lower lobe infiltrate with effusion. He had no pneumonic symptoms. No fever, chills, sepsis, etc. He had a CT that confirmed these findings without mass. P ulmonary embolism was effectively ruled out by a D-dimer that was 0.4. He underwent thoracentesis, which revealed a pH of 7.6 with a high glucose and slightly elevated LDH consistent with exudate but not empyema. The etiology is felt likely to be pneumonia although his po sitive pneumonia symptoms are noted and are somewhat a curious aspect of this case. Additionally, he was seen by speech therapy, who felt there was no aspiration. In the end, I elected to treat him wi th 7 days for community-acquired pneumonia. I discussed the case with his primary care physician, Dr Causey and he will see him in followup. The patient is not hypoxic. /[id number]/MODL
== END 2018-09-05 18:03 | disposition home or self-care (01) ==
LOC: EDUNIT# → F2W 11:43
PROVIDERS: ADMIT Internal Medicine; ATTEND Internal Medicine
PROC: 0W9B3ZZ Drainage of Left Pleural Cavity, Percutaneous Approach (ICD-10-PCS; principal; 2018-09-04)
DX: I25.110 Atherosclerotic heart disease of native coronary artery with unstable angina pectoris (principal); J90 Pleural effusion, not elsewhere classified; R91.8 Other nonspecific abnormal finding of lung field; R59.0 Localized enlarged lymph nodes; I49.5 Sick sinus syndrome; I25.2 Old myocardial infarction; I08.1 Rheumatic disorders of both mitral and tricuspid valves; I10 Essential (primary) hypertension; I48.2 Chronic atrial fibrillation; I45.10 Unspecified right bundle-branch block; E03.9 Hypothyroidism, unspecified; D64.9 Anemia, unspecified; I25.5 Ischemic cardiomyopathy; I87.2 Venous insufficiency (chronic) (peripheral); Z79.01 Long term (current) use of anticoagulants; Z86.718 Personal history of other venous thrombosis and embolism; Z85.46 Personal history of malignant neoplasm of prostate; Z87.891 Personal history of nicotine dependence; Z82.49 Family history of ischemic heart disease and other diseases of the circulatory system; Z96.649 Presence of unspecified artificial hip joint; Z95.0 Presence of cardiac pacemaker; Z95.5 Presence of coronary angioplasty implant and graft
CPT/HCPCS: 32555; 71045; 71046; 71260; 92610; 93005; 97116; 97161; 97166; G0378; G8978; G8979; 84484-PO; Q9967

== ENCOUNTER → 2018-09-22 | Outpatient (CLI) | payer BC | LOC: BMCIMAGING 13:35 | PROVIDERS: ATTEND Internal Medicine | DX: J90 Pleural effusion, not elsewhere classified (principal); I51.7 Cardiomegaly ==